=== PATIENT | female | born 1960 | race Caucasian/White ===

== ENCOUNTER 2017-09-23 00:16 | Inpatient (IN) | payer OTHER ==
[2017-09-23] MEDS ORDERED: SODIUM CHLORIDE 0.9% 1,000 ML IV STA ×2 (00:48→03:14)
[2017-09-23] MEDS ORDERED: ONDANSETRON 4 MG/2 ML VIAL IVP STA (00:48)
[2017-09-23 01:05] LABS: Basophils % (A) 1 %; Eosinophils # (A) 0.1 k/uL (0-0.7); Eosinophils % (A) 1 %; HCT 37.4 % (34.0-46.0); HGB 12.9 gm/dL (11.4-16.0); Lymphocytes # (A) 0.6 k/uL (1.0-4.8); Lymphocytes % (A) 14 %; MCH 32.5 pg (25.0-35.0); MCHC 34.5 g/dL (31.0-37.0); Mean Platelet Volume 7.9; Monocytes # (A) 0.1 k/uL (0-1.0); Monocytes % (A) 2 %; Neutrophils # (A) 3.6 k/uL (1.3-7.7); Neutrophils % (A) 81 %; RBC 3.98 m/uL (3.80-5.40); RDW 12.7 % (11.5-15.5); WBC 4.4 k/uL (3.8-10.6)
[2017-09-23 01:09] LABS: INR 1.6 (<1.2); Partial Thromboplastin Time 26.9 sec (22.0-30.0); Prothrombin Time 14.8 sec (9.0-12.0)
[2017-09-23] MEDS ORDERED: PANTOPRAZOLE 40 MG/10 ML VIAL IVP STA ×2 (01:09→02:14)
[2017-09-23] MEDS ORDERED: OCTREOTIDE 100 MCG/ML INJ IVP STA (01:09)
[2017-09-23 01:12] LABS: ALT 42 U/L (9-52); AST 112 U/L (14-36); Albumin 3.7 g/dL (3.5-5.0); Alkaline Phosphatase 139 U/L (38-126); Amylase 94 U/L (30-110); Anion Gap 19 mmol/L; Blood Urea Nitrogen 14 mg/dL (7-17); Calcium 9.5 mg/dL (8.4-10.2); Carbon Dioxide 23 mmol/L (22-30); Chloride 103 mmol/L (98-107); Glucose 143 mg/dL (74-99); Lipase 141 U/L (23-300); Potassium 4.1 mmol/L (3.5-5.1); Sodium 145 mmol/L (137-145); Total Bilirubin 3.6 mg/dL (0.2-1.3); Total Protein 8.2 g/dL (6.3-8.2)
--- NOTE | 2017-09-23 01:14 | ED ---
General Adult HPI - General Chief complaint: GI Bleed Stated complaint: vomiting Time Seen by Provider: 09/23/17 01:03 Source: patient, RN notes reviewed Mode of arrival: EMS Limitations: no limitations - History of Present Illness Initial comments: Patient is a pleasant 57-year-old female presenting to the emergency department with hematemesis. Patient has no history of similar symptoms previously. Patient does have a known history of alcoholic cirrhosis. Patient did recently start drinking again. Patient had an episode this afternoon of questionable hematemesis. Patient had an episode prior to arrival with definite blood and clots. Patient did have 2 episodes of hematemesis in the emergency department. Patient feels somewhat weak and shaky at this point otherwise has no significant complaints. No nausea at this time. No abdominal pain. No dyspnea. - Related Data Allergies Allergy/AdvReac Type Severity Reaction Status Date / Time Penicillins Allergy Unknown Verified 09/23/17 00:58 Childhood Review of Systems ROS Statement: Those systems with pertinent positive or pertinent negative responses have been documented in the HPI. ROS Other: All systems not noted in ROS Statement are negative. Constitutional: Denies: fever Eyes: Denies: eye pain ENT: Denies: ear pain Respiratory: Denies: cough Cardiovascular: Denies: chest pain Endocrine: Denies: polydipsia Gastrointestinal: Reports: vomiting, hematemesis. Denies: abdominal pain Genitourinary: Denies: dysuria Musculoskeletal: Denies: back pain Skin: Denies: rash Neurological: Denies: weakness Past Medical History Additional Past Medical History / Comment(s): cirrohsis of the liver History of Any Multi-Drug Resistant Organisms: None Reported Past Psychological History: No Psychological Hx Reported Smoking Status: Smoker, current status unknown Past Alcohol Use History: Daily Past Drug Use History: None Reported General Exam Limitations: no limitations General appearance: alert, in no apparent distress Head exam: Present: atraumatic Eye exam: Present: normal appearance, PERRL ENT exam: Present: normal oropharynx Neck exam: Present: normal inspection Respiratory exam: Present: normal lung sounds bilaterally Cardiovascular Exam: Present: regular rate, normal rhythm GI/Abdominal exam: Present: soft. Absent: distended, tenderness Extremities exam: Present: normal inspection Neurological exam: Present: alert Psychiatric exam: Present: normal affect, normal mood Skin exam: Present: normal color Course Vital Signs 09/23/17 09/23/17 09/23/17 00:29 00:43 01:42 Temperature 98.3 F Pulse Rate 106 H 99 99 Respiratory 18 18 18 Rate Blood Pressure 145/93 125/76 140/80 O2 Sat by Pulse 95 98 Oximetry Medical Decision Making - Medical Decision Making Patient reevaluated and resting comfortably in bed. Patient was updated on results and plan. Case was discussed in detail with Dr. Peter from [facility] who will admit for hospital call. Case was also discussed in detail with Dr. Calix, who will consult for critical care. Case was also discussed in detail with GI, Dr. Pinto who will also consult. She does request octreotide that has already been started. - Lab Data Result diagrams: 09/23/17 00:40 09/23/17 00:40 Lab Results 09/23/17 09/23/17 09/23/17 Range/Units 00:40 00:40 00:40 WBC (3.8-10.6) k/uL RBC (3.80-5.40) m/uL Hgb (11.4-16.0) gm/dL Hct (34.0-46.0) % MCV (80.0-100.0) fL MCH (25.0-35.0) pg MCHC (31.0-37.0) g/dL RDW (11.5-15.5) % Plt Count (150-450) k/uL Neutrophils % % Lymphocytes % % Monocytes % % Eosinophils % % Basophils % % Neutrophils # (1.3-7.7) k/uL Lymphocytes # (1.0-4.8) k/uL Monocytes # (0-1.0) k/uL Eosinophils # (0-0.7) k/uL Basophils # (0-0.2) k/uL Manual Slide Review PT (9.0-12.0) sec INR (<1.2) APTT (22.0-30.0) sec Sodium 145 (137-145) mmol/L Potassium 4.1 (3.5-5.1) mmol/L Chloride 103 (98-107) mmol/L Carbon Dioxide 23 (22-30) mmol/L Anion Gap 19 mmol/L BUN 14 (7-17) mg/dL Creatinine 0.40 L (0.52-1.04) mg/dL Est GFR (CKD-EPI)AfAm >90 (>60 ml/min/1.73 sqM) Est GFR (CKD-EPI)NonAf >90 (>60 ml/min/1.73 sqM) Glucose 143 H (74-99) mg/dL Plasma Lactic Acid Antoine 3.5 H* (0.7-2.0) mmol/L Calcium 9.5 (8.4-10.2) mg/dL Total Bilirubin 3.6 H (0.2-1.3) mg/dL AST 112 H (14-36) U/L ALT 42 (9-52) U/L Alkaline Phosphatase 139 H (38-126) U/L Total Creatine Kinase 91 (30-135) U/L CK-MB (CK-2) 0.6 (0.0-2.4) ng/mL CK-MB (CK-2) Rel Index 0.7 Troponin I <0.012 (0.000-0.034) ng/mL Total Protein 8.2 (6.3-8.2) g/dL Albumin 3.7 (3.5-5.0) g/dL Amylase 94 (30-110) U/L Lipase 141 (23-300) U/L 09/23/17 09/23/17 Range/Units 00:40 00:40 WBC 4.4 (3.8-10.6) k/uL RBC 3.98 (3.80-5.40) m/uL Hgb 12.9 (11.4-16.0) gm/dL Hct 37.4 (34.0-46.0) % MCV 94.0 (80.0-100.0) fL MCH 32.5 (25.0-35.0) pg MCHC 34.5 (31.0-37.0) g/dL RDW 12.7 (11.5-15.5) % Plt Count 91 L (150-450) k/uL Neutrophils % 81 % Lymphocytes % 14 % Monocytes % 2 % Eosinophils % 1 % Basophils % 1 % Neutrophils # 3.6 (1.3-7.7) k/uL Lymphocytes # 0.6 L (1.0-4.8) k/uL Monocytes # 0.1 (0-1.0) k/uL Eosinophils # 0.1 (0-0.7) k/uL Basophils # 0.0 (0-0.2) k/uL Manual Slide Review Performed PT 14.8 H (9.0-12.0) sec INR 1.6 H (<1.2) APTT 26.9 (22.0-30.0) sec Sodium (137-145) mmol/L Potassium (3.5-5.1) mmol/L Chloride (98-107) mmol/L Carbon Dioxide (22-30) mmol/L Anion Gap mmol/L BUN (7-17) mg/dL Creatinine (0.52-1.04) mg/dL Est GFR (CKD-EPI)AfAm (>60 ml/min/1.73 sqM) Est GFR (CKD-EPI)NonAf (>60 ml/min/1.73 sqM) Glucose (74-99) mg/dL Plasma Lactic Acid Antoine (0.7-2.0) mmol/L Calcium (8.4-10.2) mg/dL Total Bilirubin (0.2-1.3) mg/dL AST (14-36) U/L ALT (9-52) U/L Alkaline Phosphatase (38-126) U/L Total Creatine Kinase (30-135) U/L CK-MB (CK-2) (0.0-2.4) ng/mL CK-MB (CK-2) Rel Index Troponin I (0.000-0.034) ng/mL Total Protein (6.3-8.2) g/dL Albumin (3.5-5.0) g/dL Amylase (30-110) U/L Lipase (23-300) U/L Critical Care Time Critical Care Time: Yes Total Critical Care Time: 36 Disposition Clinical Impression: Gastrointestinal hemorrhage Disposition: ADMITTED IP TO THIS [facility] Condition: Serious Referrals: Nonstaff,Physician [Primary Care Provider] - 1-2 days Decision Time: 02:13
[2017-09-23 01:20] LABS: Creatine Kinase 91 U/L (30-135)
[2017-09-23 01:25] LABS: Platelet Count 91 k/uL (150-450)
[2017-09-23 01:33] LABS: Creatine Kinase MB 0.6 ng/mL (0.0-2.4); Troponin I <0.012 ng/mL (0.000-0.034)
[2017-09-23] MEDS: OCTREOTIDE 200 MCG in SODIUM CHLORIDE 0.9% 100 ML IV SCH ×6 (01:40→21:17)
[2017-09-23] MEDS ORDERED: NALOXONE 0.4 MG/ML 1 ML VIAL IV PRN (02:14)
[2017-09-23] MEDS: SODIUM CHLORIDE 0.9% 1,000 ML IV SCH ×3 (03:12→20:12)
--- NOTE | 2017-09-23 03:39 | P.HPIM ---
History of Present Illness H&P Date: 09/23/17 The Patient is a pleasant 57-year-old female with a past medical history of alcoholic liver cirrhosis that presenting to the emergency department with hematemesis. Patient has no history of similar symptoms previously. Patient does have a known . Patient did recently start drinking again today and had 3 drinks of hard liquor and 3 beers, apparently the patient started drinking again due to increase stressors from her divorce. Patient had an episode this afternoon of hematemesis. Patient had two episode prior to arrival with definite bright red blood and clots. Patient did have 4 episodes of hematemesis in the emergency department. Patient feels somewhat weak and shaky and lightheaded, with mild nausea and diaphoresis. She denies abdominal pain, diarrhea or constipation, or chest pain or shortness of air. In the ER she had admission labs with hemoglobin of 13,, INR 1.6 and a serum lactate of 3.5. She was given a liter normal saline bolus and started on maintenance fluids, 80 mg of Protonix IV push and octreotide 50mcg IV push Past Medical History Additional Past Medical History / Comment(s): cirrohsis of the liver History of Any Multi-Drug Resistant Organisms: None Reported Past Psychological History: No Psychological Hx Reported Smoking Status: Smoker, current status unknown Past Alcohol Use History: Daily Past Drug Use History: None Reported Medications and Allergies Allergies Allergy/AdvReac Type Severity Reaction Status Date / Time Penicillins Allergy Unknown Verified 09/23/17 00:58 Childhood Physical Exam Vitals: Vital Signs Temp Pulse Resp BP Pulse Ox 09/23/17 03:19 103 H 18 82/51 95 09/23/17 02:40 95 18 112/66 95 09/23/17 01:42 99 18 140/80 09/23/17 00:43 99 18 125/76 98 09/23/17 00:29 98.3 F 106 H 18 145/93 95 Intake and Output 09/22/17 09/22/17 09/23/17 14:59 22:59 06:59 Other: Weight 68.039 kg Constitutional: Mild distress diaphoretic, conversant, pleasant Eyes: Anicteric sclerae, moist conjunctiva, no lid-lag, PERRLA ENMT: NC/AT,Oropharynx clear, no erythema, exudates Neck:Supple, FROM, no masses, or JVD, No carotid bruits; No thyromegaly Lungs: Clear to auscultation, Clear to percussion, Normal respiratory effort, no accessory muscle use Cardiovascular: Regular rhythm tachycardic, No murmurs, gallops, or rubs no peripheral edema Abdominal: Soft Nontender, nom distended, no guarding, no rebound or rigidity, Normoactive bowel sounds No hepatomegaly, No splenomegaly, No palpable mass No abdominal wall hernia noted Skin: Normal temperature, tone, texture, turgor, No induration No subcutaneous nodules, No rash, lesions, No ulcers Extremities:No digital cyanosis No clubbing, Pedal pulses intact and symmetrical Radial pulses intact and symmetrical Normal gait and station, No calf tenderness Psychiatric: Alert and oriented to person, place and time, Appropriate affect Intact judgement Neuro: Muscles Strength 5/5 in all 4 extremities, Sensation to light touch grossly present throughout, Cranial nerves II-XII grossly intact. No focal sensory deficits Results CBC & Chem 7: 09/23/17 00:40 09/23/17 00:40 Labs: Abnormal Lab Results - Last 24 Hours (Table) 09/23/17 09/23/17 09/23/17 Range/Units 00:40 00:40 00:40 Plt Count 91 L (150-450) k/uL Lymphocytes # 0.6 L (1.0-4.8) k/uL PT (9.0-12.0) sec INR (<1.2) Creatinine 0.40 L (0.52-1.04) mg/dL Glucose 143 H (74-99) mg/dL Plasma Lactic Acid Antoine 3.5 H* (0.7-2.0) mmol/L Total Bilirubin 3.6 H (0.2-1.3) mg/dL AST 112 H (14-36) U/L Alkaline Phosphatase 139 H (38-126) U/L 09/23/17 Range/Units 00:40 Plt Count (150-450) k/uL Lymphocytes # (1.0-4.8) k/uL PT 14.8 H (9.0-12.0) sec INR 1.6 H (<1.2) Creatinine (0.52-1.04) mg/dL Glucose (74-99) mg/dL Plasma Lactic Acid Antoine (0.7-2.0) mmol/L Total Bilirubin (0.2-1.3) mg/dL AST (14-36) U/L Alkaline Phosphatase (38-126) U/L Assessment and Plan (1) Gastrointestinal hemorrhage Current Visit: Yes Status: Acute Code(s): K92.2 - GASTROINTESTINAL HEMORRHAGE, UNSPECIFIED SNOMED Code(s): 21928742 (2) Hypotension due to blood loss Current Visit: Yes Status: Acute Code(s): I95.89 - OTHER HYPOTENSION SNOMED Code(s): 81493422 (3) Alcoholic cirrhosis of liver Current Visit: Yes Status: Acute Code(s): K70.30 - ALCOHOLIC CIRRHOSIS OF LIVER WITHOUT ASCITES SNOMED Code(s): 682512219 (4) Chronic alcohol dependence, continuous Current Visit: Yes Status: Acute Code(s): F10.20 - ALCOHOL DEPENDENCE, UNCOMPLICATED SNOMED Code(s): 237840283 Plan: The patient is admitted with anticipated stay of greater than 2 midnights with upper GI bleed and concern for impending anemia after presenting with several episodes of hematemesis michael red blood with the products of 1 episode of hematemesis witnessed by me personally. The patient is also hypotensive and tachycardic with elevated serum lactate level secondary to her upper GI bleed. We'll bolus the patient another 2 L of normal saline, continue her octreotide drip, continue IV Protonix. Patient will be observed closely in the ICU with Dr. Ricketts in consultation, GI Dr. Moran was also consulted for further recommendations. There is no other the patient has a elevated INR of 1.6 which is likely due to autocoagulopathy due to her underlying liver cirrhosis. We'll continue to follow her CBC closely , repeat a lactate level, check serum alcohol initiate [facility] symptom based alcohol withdrawal protocol and continue to monitor her clinical course. DVT prophylaxis with pharmacotherapy contraindicated at this time due to upper GI bleeding.
[2017-09-23] MEDS ORDERED: THIAMINE 100 MG/ML 2 ML VIAL IM STA (03:48)
[2017-09-23] MEDS ORDERED: LORazepam 2 MG/ML INJ IV PRN ×3 (03:48)
--- NOTE | 2017-09-23 04:18 | CT ---
EXAMINATION TYPE: CT abdomen pelvis wo con DATE OF EXAM: 09/23/2017 COMPARISON: NONE HISTORY: GI Bleed CT DLP: 394.30 mGycm Automated exposure control for dose reduction was used. TECHNIQUE: Helical acquisition of images was performed from the lung bases through the pelvis. FINDINGS: Lung bases are clear. There is no pleural effusion. There is a small hiatal hernia. There is patchy decreased attenuation throughout the liver. Spleen is borderline enlarged. There is n o pancreatic mass. Gallbladder is not seen. There is a large umbilical hernia that contains omental f at and varicose veins. There is no adrenal mass. Kidneys have normal size. There is no hydronephrosis. There is no retroperi toneal adenopathy. There is no evidence of a bowel obstruction. I see no intestinal wall thickening. There are no dilate d loops. I see no bony destructive process. Appendix is not seen. There is no sign of appendicitis. IMPRESSION: UMBILICAL VARICES. EXTENSIVE HYPODENSITY IN THE LIVER. IS NOT CLEAR IF THIS IS DUE TO AN INFILTRATIVE PROCESS OR CIRRHOSIS AND FATTY INFILTRATION. THE POSSIBILITY OF NEOPLASM IS NOT EXCLUDED. VARICES AR E CONSISTENT WITH SIGNIFICANT PORTAL VENOUS HYPERTENSION. LARGE UMBILICAL HERNIA CONTAINS OMENTAL FAT AND VARICES. NO BOWEL OBSTRUCTION.
[2017-09-23 04:30] LABS: Basophils % (A) 0 %; Eosinophils % (A) 0 %; HGB 10.1 gm/dL (11.4-16.0); Lymphocytes # (A) 0.4 k/uL (1.0-4.8); Lymphocytes % (A) 6 %; MCH 32.6 pg (25.0-35.0); MCHC 33.8 g/dL (31.0-37.0); MCV 96.5 fL (80.0-100.0); Mean Platelet Volume 8.8; Monocytes # (A) 0.4 k/uL (0-1.0); Monocytes % (A) 6 %; Neutrophils % (A) 87 %; Platelet Count 79 k/uL (150-450); RBC 3.11 m/uL (3.80-5.40); RDW 12.6 % (11.5-15.5); WBC 6.9 k/uL (3.8-10.6)
[2017-09-23 04:41] LABS: Glucose,Whole Blood 127 mg/dL (75-99)
[2017-09-23 04:43] LABS: ALT 41 U/L (9-52); AST 80 U/L (14-36); Albumin 2.7 g/dL (3.5-5.0); Alkaline Phosphatase 100 U/L (38-126); Anion Gap 15 mmol/L; Blood Urea Nitrogen 14 mg/dL (7-17); Carbon Dioxide 20 mmol/L (22-30); Chloride 109 mmol/L (98-107); Glucose 105 mg/dL (74-99); Potassium 3.9 mmol/L (3.5-5.1); Sodium 144 mmol/L (137-145); Total Bilirubin 3.3 mg/dL (0.2-1.3); Total Protein 6.3 g/dL (6.3-8.2)
[2017-09-23] MEDS: ONDANSETRON 4 MG/2 ML VIAL IVP PRN ×2 (05:03→12:54)
[2017-09-23 08:49] LABS: Basophils % (A) 0 %; Eosinophils % (A) 0 %; HGB 9.3 gm/dL (11.4-16.0); Lymphocytes # (A) 0.3 k/uL (1.0-4.8); Lymphocytes % (A) 6 %; MCH 32.6 pg (25.0-35.0); MCHC 34.2 g/dL (31.0-37.0); MCV 95.3 fL (80.0-100.0); Mean Platelet Volume 9.6; Monocytes # (A) 0.2 k/uL (0-1.0); Monocytes % (A) 4 %; Neutrophils # (A) 4.8 k/uL (1.3-7.7); Neutrophils % (A) 90 %; RBC 2.84 m/uL (3.80-5.40); RDW 12.7 % (11.5-15.5); WBC 5.4 k/uL (3.8-10.6)
[2017-09-23 08:53] LABS: Platelet Count 59 k/uL (150-450)
[2017-09-23 09:10] LABS: Anion Gap 13 mmol/L; Blood Urea Nitrogen 14 mg/dL (7-17); Calcium 7.8 mg/dL (8.4-10.2); Carbon Dioxide 22 mmol/L (22-30); Chloride 109 mmol/L (98-107); Glucose 155 mg/dL (74-99); Magnesium 1.2 mg/dL (1.6-2.3); Phosphorus 3.8 mg/dL (2.5-4.5); Potassium 4.5 mmol/L (3.5-5.1); Sodium 144 mmol/L (137-145)
--- NOTE | 2017-09-23 09:34 | P.CNPUL ---
History of Present Illness Consult date: 09/23/17 Chief complaint: GI bleed, alcoholic liver disease, cirrhosis History of present illness: Consult dated 09/23/2017 57-year-old female presenting to the emergency department with hematemesis. She has a known history of alcoholic liver disease and liver cirrhosis from chronic alcohol abuse. She apparently stopped drinking for a while but started drinking again. She states that she drinks 10 beers a day. She taper typically drinks a VATS. The patient denies any abdominal pain or abdominal discomfort. Denies any difficulty breathing coughing wheezing or shortness of breath. She apparently had a couple of episodes of hematemesis in the emergency department. She does feel a little weak and shaky. Seen by the hospitalist. She's not receiving any supplemental oxygen at this time. She does have an IV of saline at 120 and our. She's also on octreotide at 50 g per hour. Has not received any PRBCs. Lactic acid was initially 3.5 and then came down to 3.0. Hemoglobin is 10.1. Hemodynamically, the patient is stable. The patient states that she does not have any other major medical problems. Denies any hypertension diabetes or hyperlipidemia. Is a current every day smoker. As I mention does drink 10 beers a day starting at about 8:00 in the morning and ending at about 2:00 in the morning. Review of Systems Constitutional negative, neurologic negative, HEENT negative, cardiovascular negative, pulmonary negative, GI hematemesis, negative, rheumatologic negative, neurologic negative, dermatologic negative. Past Medical History Additional Past Medical History / Comment(s): cirrohsis of the liver History of Any Multi-Drug Resistant Organisms: None Reported Past Psychological History: No Psychological Hx Reported Smoking Status: Smoker, current status unknown Past Alcohol Use History: Daily Past Drug Use History: None Reported Medications and Allergies Home Medications Medication Instructions Recorded Confirmed Type Furosemide [Lasix] 40 mg PO DAILY 09/23/17 09/23/17 History Allergies Allergy/AdvReac Type Severity Reaction Status Date / Time Penicillins Allergy Unknown Verified 09/23/17 08:16 Childhood Physical Exam Osteopathic Statement: *. No significant issues noted on an osteopathic structural exam other than those noted in the History and Physical/Consult. Vitals: Vital Signs Temp Pulse Resp BP Pulse Ox 09/23/17 08:00 99.7 F H 107 H 32 H 104/52 94 L 09/23/17 07:00 103 H 16 101/49 94 L 09/23/17 06:00 89 16 104/69 94 L 09/23/17 05:00 99 16 100/64 95 09/23/17 04:50 17 09/23/17 04:40 97.4 F L 100 16 100/64 94 L 09/23/17 04:23 98.3 F 97 18 98/62 95 09/23/17 03:45 109 H 18 119/56 98 09/23/17 03:19 103 H 18 82/51 95 09/23/17 02:40 95 18 112/66 95 09/23/17 01:42 99 18 140/80 09/23/17 00:43 99 18 125/76 98 09/23/17 00:29 98.3 F 106 H 18 145/93 95 Intake and Output 09/22/17 09/23/17 09/23/17 22:59 06:59 14:59 Intake Total 341 299.758 Output Total 240 Balance 101 299.758 Intake: IV 240 240 Sodium Chloride 0.9% 1, 240 240 000 ml @ 120 mls/hr IV . Q8H20M HAROLDO Rx#:[id number] Intake, IV Titration 101 59.758 Amount Octreotide 200 mcg In 101 59.758 Sodium Chloride 0.9% 100 ml @ 50 MCG/HR 25.25 mls/ hr IV .Q4H HAROLDO Rx#: [id number] Output: Emesis 240 Other: # Voids 1 Weight 68.039 kg No acute distress, oriented 3. The patient is a bit shaky. HEENT examination is grossly unremarkable. Mucous membranes are moist. No oral lesions. Neck supple. Full range of motion. No adenopathy thyromegaly or neck vein distention. Cardiovascular examination reveals regular rhythm rate. S1-S2 normal. No S3 or S4. No discernible murmur noted. Lungs reveal clear breath sounds. Her sounds are equal bilaterally. No adventitious lung sounds including wheezes rhonchi or crackles. Abdomen soft bowel sounds are heard. No masses or tenderness. Extremities are intact. No cyanosis clubbing or edema. Skin reveals spider angiomata, a stigmata of alcoholic liver disease Neurologic examination is brief but nonfocal. Results - Laboratory Findings CBC and BMP: 09/23/17 08:22 04/11/18 03:50 PT/INR, D-dimer PT 14.8 sec (9.0-12.0) H 09/23/17 00:40 INR 1.6 (<1.2) H 09/23/17 00:40 Abnormal lab findings: Abnormal Labs 09/23/17 09/23/17 09/23/17 00:40 00:40 00:40 RBC Hgb Hct Plt Count 91 L Lymphocytes # 0.6 L PT INR Chloride Carbon Dioxide Creatinine 0.40 L Glucose 143 H POC Glucose (mg/dL) Plasma Lactic Acid Antoine 3.5 H* Calcium Total Bilirubin 3.6 H AST 112 H Alkaline Phosphatase 139 H Albumin 09/23/17 09/23/17 09/23/17 00:40 03:50 03:50 RBC 3.11 L Hgb 10.1 L Hct 30.0 L Plt Count 79 L Lymphocytes # 0.4 L PT 14.8 H INR 1.6 H Chloride 109 H Carbon Dioxide 20 L Creatinine 0.50 L Glucose 105 H POC Glucose (mg/dL) Plasma Lactic Acid Antoine Calcium 8.0 L Total Bilirubin 3.3 H AST 80 H Alkaline Phosphatase Albumin 2.7 L 09/23/17 09/23/17 09/23/17 03:50 04:39 08:22 RBC 2.84 L Hgb 9.3 L Hct 27.0 L Plt Count 59 L Lymphocytes # 0.3 L PT INR Chloride Carbon Dioxide Creatinine Glucose POC Glucose (mg/dL) 127 H Plasma Lactic Acid Antoine 3.0 H* Calcium Total Bilirubin AST Alkaline Phosphatase Albumin 09/23/17 08:22 RBC Hgb Hct Plt Count Lymphocytes # PT INR Chloride Carbon Dioxide Creatinine Glucose POC Glucose (mg/dL) Plasma Lactic Acid Antoine 3.3 H* Calcium Total Bilirubin AST Alkaline Phosphatase Albumin - Diagnostic Findings Chest x-ray: image reviewed (Chest x-ray labs and medications are all reviewed.) Assessment and Plan Assessment: Assessment Alcoholic liver disease with alcoholic cirrhosis Upper GI bleed, likely secondary to esophageal varices or gastric/duodenal ulcer. History of chronic alcohol abuse at 10 beers per day Chronic tobacco use Noncompliance with general medical care Plan: Plan dated 09/23/2017 The patient will probably have a scope today. Was suspected EGD to rule out esophageal varices. The patient currently is on octreotide at 50 g per hour. The patient's also receiving saline IV 120 mL an hour. Not requiring any supplemental oxygen. Hemoglobin stable at 10.1. Labs and x-rays are reviewed. Prognosis is guarded. He concerned about full-blown alcohol withdrawal syndrome, i.e. delirium tremens. Additional recommendations and suggestions are forthcoming. For the time being, she will stay here in the ICU. I did speak to the hospitalist about her. Also case work aide is involved in terms of her issue with lack of insurance. Time with Patient: Greater than 30
[2017-09-23] MEDS: PANTOPRAZOLE 40 MG/10 ML VIAL IV SCH ×2 (09:40→20:07)
--- NOTE | 2017-09-23 10:14 | P.CONS ---
History of Present Illness - Reason for Consult Consult date: 09/23/17 GI bleed hematemesis Requesting physician: Reynold Peter - History of Present Illness 57-year-old female diagnosed with alcohol liver cirrhosis several years ago in [facility] presents with acute hematemesis 24 hours without fever chills melena or hematochezia. Patient has been drinking multiple beers on a daily basis experiencing some social stresses in her life. Reports mid epigastric discomfort. She vomited dark red emesis multiple times yesterday and early through the night but none this morning. She is presently receiving intravenous Protonix and Sandostatin. EGD colonoscopy outside facility 3-4 years ago to her memory; EGD normal no mentioning of varices or peptic ulcer disease; colonoscopy 1 polyp removed. Admission hemoglobin 12.9 presently 9.3. Platelet 59,000. BUN 14. Creatinine 0.4. INR 1.6. Total bilirubin 3.6. AST 112. ALT 42. Alkaline phosphatase 139. Lipase 141. Serum alcohol <10. Lactic acid 3.5 presently 3.3. Sodium 144. Potassium 4.5. CT abdomen and pelvis without contrast umbilical varices. Extensive hypodensity in the liver not clear if it's due to an infiltrative process of cirrhosis or fatty infiltration. Neoplasm cannot be excluded. Varices are consistent with significant portal venous hypertension. Large umbilical hernia omental fat and varices no bowel obstruction. Review of Systems Constitutional: Denies fever, chills, sweats, weight gain, or loss. HEENT: Negative for migraines, blurred vision or loss, earaches, drainage, tinnitus, oral mucosal lesions, dysphagia, or odynophagia. CARDIAC: Negative for chest pain, arrhythmias, or palpitation. RESPIRATORY: Negative for shortness of breath, hemoptysis, cough, or sputum production. GI: See HPI for pertinent findings. : Negative for hematuria, urgency, frequency, polyuria, or dysuria. GYNc: Denies possibility of . Negative vaginal discharge. MUSCULOSKELETAL: Negative for muscle aches, swelling, arthritis, and arthralgias. NEUROLOGIC: Negative for stroke or TIA. ENDOCRINE: Negative for thyroid problems. SKIN: Negative for rash or itching. PSYCHIATRIC: Negative history for depression and anxiety Past Medical History Additional Past Medical History / Comment(s): cirrohsis of the liver History of Any Multi-Drug Resistant Organisms: None Reported Past Psychological History: No Psychological Hx Reported Smoking Status: Smoker, current status unknown Past Alcohol Use History: Daily Past Drug Use History: None Reported Medications and Allergies Home Medications Medication Instructions Recorded Confirmed Type Furosemide [Lasix] 40 mg PO DAILY 09/23/17 09/23/17 History Allergies Allergy/AdvReac Type Severity Reaction Status Date / Time Penicillins Allergy Unknown Verified 09/23/17 08:16 Childhood Physical Exam Vitals: Vital Signs Temp Pulse Resp BP Pulse Ox 09/23/17 08:00 99.7 F H 107 H 32 H 104/52 94 L 09/23/17 07:00 103 H 16 101/49 94 L 09/23/17 06:00 89 16 104/69 94 L 09/23/17 05:00 99 16 100/64 95 09/23/17 04:50 17 09/23/17 04:40 97.4 F L 100 16 100/64 94 L 09/23/17 04:23 98.3 F 97 18 98/62 95 09/23/17 03:45 109 H 18 119/56 98 09/23/17 03:19 103 H 18 82/51 95 09/23/17 02:40 95 18 112/66 95 09/23/17 01:42 99 18 140/80 09/23/17 00:43 99 18 125/76 98 09/23/17 00:29 98.3 F 106 H 18 145/93 95 Intake and Output 09/22/17 09/23/17 09/23/17 22:59 06:59 14:59 Intake Total 341 299.758 Output Total 240 Balance 101 299.758 Intake: IV 240 240 Sodium Chloride 0.9% 1, 240 240 000 ml @ 120 mls/hr IV . Q8H20M [facility] Rx#:[id number] Intake, IV Titration 101 59.758 Amount Octreotide 200 mcg In 101 59.758 Sodium Chloride 0.9% 100 ml @ 50 MCG/HR 25.25 mls/ hr IV .Q4H [facility] Rx#: [id number] Output: Emesis 240 Other: # Voids 1 Weight 68.039 kg General appearance: The patient is alert, oriented, in no acute distress. HET: Head is normocephalic and atraumatic. Pupils are equal and reactive. Oropharynx is clear without lesions. Neck: Supple without lymphadenopathy. Trachea midline. Heart: S1 S2. Regular rate and rhythm. Lungs: No crackles or wheezes are heard. Abdomen: Soft, mild midepigastric tenderness reducible umbilical hernia, nondistended with bowel sounds. No peritoneal signs. No palpable organomegaly or masses. Extremities: Normal skin color and turgor. No cyanosis, rash, ulceration, clubbing, or edema. Radial and pedal pulses are 2/4 bilaterally. Neurological: No focal deficits. Strength and sensation are grossly intact. Results CBC & Chem 7: 09/23/17 08:22 09/23/17 08:22 Labs: Abnormal Lab Results - Last 24 Hours (Table) 09/23/17 09/23/17 09/23/17 Range/Units 00:40 00:40 00:40 RBC (3.80-5.40) m/uL Hgb (11.4-16.0) gm/dL Hct (34.0-46.0) % Plt Count 91 L (150-450) k/uL Lymphocytes # 0.6 L (1.0-4.8) k/uL PT (9.0-12.0) sec INR (<1.2) Chloride (98-107) mmol/L Carbon Dioxide (22-30) mmol/L Creatinine 0.40 L (0.52-1.04) mg/dL Glucose 143 H (74-99) mg/dL POC Glucose (mg/dL) (75-99) mg/dL Plasma Lactic Acid Antoine 3.5 H* (0.7-2.0) mmol/L Calcium (8.4-10.2) mg/dL Magnesium (1.6-2.3) mg/dL Total Bilirubin 3.6 H (0.2-1.3) mg/dL AST 112 H (14-36) U/L Alkaline Phosphatase 139 H (38-126) U/L Albumin (3.5-5.0) g/dL 09/23/17 09/23/17 09/23/17 Range/Units 00:40 03:50 03:50 RBC 3.11 L (3.80-5.40) m/uL Hgb 10.1 L (11.4-16.0) gm/dL Hct 30.0 L (34.0-46.0) % Plt Count 79 L (150-450) k/uL Lymphocytes # 0.4 L (1.0-4.8) k/uL PT 14.8 H (9.0-12.0) sec INR 1.6 H (<1.2) Chloride 109 H (98-107) mmol/L Carbon Dioxide 20 L (22-30) mmol/L Creatinine 0.50 L (0.52-1.04) mg/dL Glucose 105 H (74-99) mg/dL POC Glucose (mg/dL) (75-99) mg/dL Plasma Lactic Acid Antoine (0.7-2.0) mmol/L Calcium 8.0 L (8.4-10.2) mg/dL Magnesium (1.6-2.3) mg/dL Total Bilirubin 3.3 H (0.2-1.3) mg/dL AST 80 H (14-36) U/L Alkaline Phosphatase (38-126) U/L Albumin 2.7 L (3.5-5.0) g/dL 09/23/17 09/23/17 09/23/17 Range/Units 03:50 04:39 08:22 RBC 2.84 L (3.80-5.40) m/uL Hgb 9.3 L (11.4-16.0) gm/dL Hct 27.0 L (34.0-46.0) % Plt Count 59 L (150-450) k/uL Lymphocytes # 0.3 L (1.0-4.8) k/uL PT (9.0-12.0) sec INR (<1.2) Chloride (98-107) mmol/L Carbon Dioxide (22-30) mmol/L Creatinine (0.52-1.04) mg/dL Glucose (74-99) mg/dL POC Glucose (mg/dL) 127 H (75-99) mg/dL Plasma Lactic Acid Antoine 3.0 H* (0.7-2.0) mmol/L Calcium (8.4-10.2) mg/dL Magnesium (1.6-2.3) mg/dL Total Bilirubin (0.2-1.3) mg/dL AST (14-36) U/L Alkaline Phosphatase (38-126) U/L Albumin (3.5-5.0) g/dL 09/23/17 09/23/17 Range/Units 08:22 08:22 RBC (3.80-5.40) m/uL Hgb (11.4-16.0) gm/dL Hct (34.0-46.0) % Plt Count (150-450) k/uL Lymphocytes # (1.0-4.8) k/uL PT (9.0-12.0) sec INR (<1.2) Chloride 109 H (98-107) mmol/L Carbon Dioxide (22-30) mmol/L Creatinine 0.45 L (0.52-1.04) mg/dL Glucose 155 H (74-99) mg/dL POC Glucose (mg/dL) (75-99) mg/dL Plasma Lactic Acid Antoine 3.3 H* (0.7-2.0) mmol/L Calcium 7.8 L (8.4-10.2) mg/dL Magnesium 1.2 L (1.6-2.3) mg/dL Total Bilirubin (0.2-1.3) mg/dL AST (14-36) U/L Alkaline Phosphatase (38-126) U/L Albumin (3.5-5.0) g/dL CT scan - abdomen: report reviewed (Dr. Moran) Assessment and Plan (1) Acute upper GI bleed Narrative/Plan: Possible esophageal gastric variceal bleed possible peptic ulcer disease. Current Visit: Yes Status: Acute Code(s): K92.2 - GASTROINTESTINAL HEMORRHAGE, UNSPECIFIED SNOMED Code(s): 74666113 (2) Hematemesis Current Visit: Yes Status: Acute Code(s): K92.0 - HEMATEMESIS SNOMED Code( s): 1054998 (3) Alcoholic cirrhosis of liver Current Visit: Yes Status: Acute Code(s): K70.30 - ALCOHOLIC CIRRHOSIS OF LIVER WITHOUT ASCITES SNOMED Code(s): 750672797 (4) Chronic alcohol dependence, continuous Current Visit: Yes Status: Acute Code(s): F10.20 - ALCOHOL DEPENDENCE, UNCOMPLICATED SNOMED Code(s): 338230854 (5) Acute blood loss anemia Current Visit: Yes Status: Acute Code(s): D62 - ACUTE POSTHEMORRHAGIC ANEMIA SNOMED Code(s): 419167042 (6) Thrombocytopenia Current Visit: Yes Status: Acute Code(s): D69.6 - THROMBOCYTOPENIA, UNSPECIFIED SNOMED Code(s): 847567690 (7) Coagulopathy Current Visit: Yes Status: Acute Code(s): D68.9 - COAGULATION DEFECT, UNSPECIFIED SNOMED Code(s): 65960804 (8) Varices of other sites Narrative/Plan: Umbilical varices per CT Current Visit: Yes Status: Acute Code(s): I86.8 - VARICOSE VEINS OF OTHER SPECIFIED SITES SNOMED Code(s): 826323538 Plan: 1. EGD evaluation. 2. Continue with intravenous Sandostatin and Protonix. 3. CBC every 6 hours. 4. Alcohol abstinence strongly advised. 5. Hepatitis screen. AFP marker. The workday financials consultant has discussed the risks, benefits and alternative therapies for the above-mentioned procedure and for both sedation/analgesia as well as necessary blood product administration, if indicated, as they pertain to this patient. The patient has indicated understanding and acceptance of the risks and procedures discussed. Thank you for this kind referral and the opportunity to participate in the care of your patient. This consultation was discussed with Dr. Moran. The impression and plan of care have been directed as dictated.
--- NOTE | 2017-09-23 11:24 | P.PN ---
Subjective Progress Note Date: 09/23/17 Principal diagnosis: Hematemesis Patient is a 57-year-old female with a known history of cirrhosis, alcohol abuse, and tobacco abuse who presented to the emergency department with hematemesis. On arrival she was found to be slightly tachycardic with a pulse of 106. Blood pressure was normal at 145/93. Initial laboratory analysis showed a normal hemoglobin. Platelets were slightly low at 91. INR elevated at 1.6. Her lactic acid was also a 3.5. AST and total bilirubin were mildly elevated. She continued to have some vomiting in the emergency department. She was placed on a Protonix IV push and on octreotide drip. Arrangements were made for her to be admitted to the ICU. Her hemoglobin then down trended to 10.1. Patient seen and examined at bedside. She denies any more vomiting since arriving to the ICU. She feels slightly nauseated. She denies any chest pain or shortness of breath. She states that she was first diagnosed with cirrhosis 7 years ago. She's been sober for 5 years but started drinking again approximately 2 years ago. Initially it was seldom, but for the last year she has been drinking 10 beers daily. She reports some tremor and feeling anxious. She is not fidgety. She is not diaphoretic at this time. She does have a history of alcohol withdrawal in the past when hospitalized. Her last drink was yesterday early afternoon. No history of seizure from alcohol withdrawal Objective - Vital Signs Vital signs: Vital Signs Temp 99.7 F H 09/23/17 08:00 Pulse 101 H 09/23/17 11:00 Resp 22 09/23/17 11:00 BP 109/54 09/23/17 11:00 Pulse Ox 93 L 09/23/17 11:00 Intake & Output 09/22/17 09/23/17 09/23/17 18:59 06:59 18:59 Intake Total 341 659.758 Output Total 240 Balance 101 659.758 Weight 68.039 kg Intake: IV 240 600 Sodium Chloride 0.9% 1, 240 600 000 ml @ 120 mls/hr IV . Q8H20M [facility] Rx#:[id number] Intake, IV Titration 101 59.758 Amount Octreotide 200 mcg In 101 59.758 Sodium Chloride 0.9% 100 ml @ 50 MCG/HR 25.25 mls/ hr IV .Q4H [facility] Rx#: [id number] Output: Emesis 240 Other: # Voids 1 - Exam General: non toxic, mild distress, appears at stated age Derm: warm, dry Head: atraumatic, normocephalic, symmetric Eyes: EOMI, no lid lag, anicteric sclera Mouth: no lip lesion, mucus membranes moist Cardiovascular: S1S2 reg, no murmur, positive posterior tibial pulse bilateral, Lungs: Decreased breath sounds bilateral bases, no rhonchi, no rales , no accessory muscle use Abdominal: soft, nontender to palpation, no guarding, no appreciable organomegaly Ext: no gross muscle atrophy, no edema, no contractures Neuro: CN II-XI grossly intact, no focal neuro deficits, + asterixis Psych: Alert, oriented, appropriate affect , appears anxious - Labs CBC & Chem 7: 09/23/17 08:22 09/23/17 08:22 Labs: Abnormal Lab Results - Last 24 Hours (Table) 09/23/17 09/23/17 09/23/17 Range/Units 00:40 00:40 00:40 RBC (3.80-5.40) m/uL Hgb (11.4-16.0) gm/dL Hct (34.0-46.0) % Plt Count 91 L (150-450) k/uL Lymphocytes # 0.6 L (1.0-4.8) k/uL PT (9.0-12.0) sec INR (<1.2) Chloride (98-107) mmol/L Carbon Dioxide (22-30) mmol/L Creatinine 0.40 L (0.52-1.04) mg/dL Glucose 143 H (74-99) mg/dL POC Glucose (mg/dL) (75-99) mg/dL Plasma Lactic Acid Antoine 3.5 H* (0.7-2.0) mmol/L Calcium (8.4-10.2) mg/dL Magnesium (1.6-2.3) mg/dL Total Bilirubin 3.6 H (0.2-1.3) mg/dL AST 112 H (14-36) U/L Alkaline Phosphatase 139 H (38-126) U/L Albumin (3.5-5.0) g/dL 09/23/17 09/23/1718 Range/Units 00:40 03:50 03:50 RBC 3.11 L (3.80-5.40) m/uL Hgb 10.1 L (11.4-16.0) gm/dL Hct 30.0 L (34.0-46.0) % Plt Count 79 L (150-450) k/uL Lymphocytes # 0.4 L (1.0-4.8) k/uL PT 14.8 H (9.0-12.0) sec INR 1.6 H (<1.2) Chloride 109 H (98-107) mmol/L Carbon Dioxide 20 L (22-30) mmol/L Creatinine 0.50 L (0.52-1.04) mg/dL Glucose 105 H (74-99) mg/dL POC Glucose (mg/dL) (75-99) mg/dL Plasma Lactic Acid Antoine (0.7-2.0) mmol/L Calcium 8.0 L (8.4-10.2) mg/dL Magnesium (1.6-2.3) mg/dL Total Bilirubin 3.3 H (0.2-1.3) mg/dL AST 80 H (14-36) U/L Alkaline Phosphatase (38-126) U/L Albumin 2.7 L (3.5-5.0) g/dL 09/23/17 09/23/17 09/23/17 Range/Units 03:50 04:39 08:22 RBC 2.84 L (3.80-5.40) m/uL Hgb 9.3 L (11.4-16.0) gm/dL Hct 27.0 L (34.0-46.0) % Plt Count 59 L (150-450) k/uL Lymphocytes # 0.3 L (1.0-4.8) k/uL PT (9.0-12.0) sec INR (<1.2) Chloride (98-107) mmol/L Carbon Dioxide (22-30) mmol/L Creatinine (0.52-1.04) mg/dL Glucose (74-99) mg/dL POC Glucose (mg/dL) 127 H (75-99) mg/dL Plasma Lactic Acid Antoine 3.0 H* (0.7-2.0) mmol/L Calcium (8.4-10.2) mg/dL Magnesium (1.6-2.3) mg/dL Total Bilirubin (0.2-1.3) mg/dL AST (14-36) U/L Alkaline Phosphatase (38-126) U/L Albumin (3.5-5.0) g/dL 09/23/17 09/23/17 Range/Units 08:22 08:22 RBC (3.80-5.40) m/uL Hgb (11.4-16.0) gm/dL Hct (34.0-46.0) % Plt Count (150-450) k/uL Lymphocytes # (1.0-4.8) k/uL PT (9.0-12.0) sec INR (<1.2) Chloride 109 H (98-107) mmol/L Carbon Dioxide (22-30) mmol/L Creatinine 0.45 L (0.52-1.04) mg/dL Glucose 155 H (74-99) mg/dL POC Glucose (mg/dL) (75-99) mg/dL Plasma Lactic Acid Antoine 3.3 H* (0.7-2.0) mmol/L Calcium 7.8 L (8.4-10.2) mg/dL Magnesium 1.2 L (1.6-2.3) mg/dL Total Bilirubin (0.2-1.3) mg/dL AST (14-36) U/L Alkaline Phosphatase (38-126) U/L Albumin (3.5-5.0) g/dL Assessment and Plan Assessment: Upper GI bleed, likely variceal -Male with Protonix and octreotide -Await GI consultation -Nothing by mouth status -Follow CBC every 6 hours Acute blood loss anemia secondary to above -Follow intermittent CBC -Likely will need iron replacement therapy on discharge Cirrhosis, compensated - MELD 17 - Await GI recs Alcohol abuse with impending DTs -CIWA -Thiamine replacement -Folic acid supplementation Tobacco abuse -Cessation -Nicotine replacement Lactic acidosis -Likely secondary to liver disease -Don't results of this with patient's known cirrhosis. DVT prophylaxis: SCDs Discussed with: Patient, RN, CM, Dr. Ricketts Anticipated discharge: 3-[address]: home A total of 40 minutes was spent on the care of this complex patient more than 50 % of the time was spent in counseling and care coordination.
[2017-09-23] MEDS ORDERED: PROPOFOL 10 MG/ML 20 ML VIAL IV ONE (12:00)
[2017-09-23] MEDS ORDERED: LIDOCAINE 1% INJ 10MG/ML (20 ML MDV) ONE (12:00)
[2017-09-23] MEDS ORDERED: IV FLUID CONTINUATION 1,000 ML IV ONE (12:01)
--- NOTE | 2017-09-23 12:18 | P.PCN ---
Date of Procedure: 09/23/17 Procedure(s) Performed: BRIEF HISTORY: Patient is a 57-year-old, pleasant, white female, admitted to the hospital with acute upper GI bleed. She has history of alcohol cirrhosis of the liver diagnosed 7 years ago and is actively drinking. She presented emergency room with multiple episodes of hematemesis and drop in hemoglobin from 11-9 g/dL. He presently on IV Protonix and IV Sandostatin drip.. PROCEDURE PERFORMED: Esophagogastroduodenoscopy with variceal ligation. PREOPERATIVE DIAGNOSIS: Cirrhosis of the liver/acute upper GI bleed. IV sedation per anesthesia. PROCEDURE: After informed consent was obtained, the patient was brought into the endoscopy unit. IV sedation was administered by Anesthesia under continuous monitoring. Initially the Olympus GIF-140 video endoscope was inserted into the mouth. Esophagus intubated without any difficulty. It was gradually advanced into the stomach and duodenum and carefully examined. The bulb and the second part of the duodenum appeared normal. The scope at this time was withdrawn to the stomach, adequately insufflated with air, and upon careful examination, mucosa of the antrum, body, appeared normal. This large amount of fresh blood noted in the fundus of the stomach that could not be adequately visualized. The scope was then withdrawn into the esophagus. There were small distal esophageal varices seen and one of the varix at 32 cm from the incisors had a small brown protuberance which appears to be the source of bleeding though there was no active bleeding from the varix identified. At this time the scope was removed and esophageal variceal ligation equipment was introduced onto the tip of the scope and esophagus intubated without any difficulty and was gradually advanced into the distal esophagus. In a spiral fashion but he still ligation was performed on the varix that appeared to be the source of bleeding and 3 other bands were deployed undigested varices. the patient tolerated the procedure well. IMPRESSION: 1. Large amount of blood in the fundus of the stomach. 2. Small distal esophageal varices, with one of the varix having the brownish protuberance suspicious for recent source of bleeding status post variceal ligation as described above. RECOMMENDATIONS: The findings of this examination were discussed with the patient. NG tube will be placed for continuous suction. IV Sandostatin and IV Protonix will be continued. CBC every 6 hours..
[2017-09-23] MEDS: BENZOCAINE SPRAY 1 CAN MUCOUS MEM PRN ×2 (13:17→19:28)
[2017-09-23] MEDS ORDERED: Magnesium Replacement Protocol 1 EACH MISC MISCELLANE PRN (13:55)
[2017-09-23] MEDS ORDERED: LIDOCAINE 2% GEL 5 ML TUBE TOPICAL PRN (13:57)
[2017-09-23] MEDS: KETOROLAC 30 MG/ML 1 ML VIAL IVP PRN ×2 (14:08→20:09)
[2017-09-23] MEDS: LEVOFLOXACIN 500MG-D5W PMX 500 MG in DEXTROSE/WATER 1 100ML.BAG IVPB SCH (14:24)
[2017-09-23 14:54] LABS: HCT 25.2 % (34.0-46.0); HGB 8.7 gm/dL (11.4-16.0); MCH 33.4 pg (25.0-35.0); MCHC 34.4 g/dL (31.0-37.0); MCV 97.1 fL (80.0-100.0); Mean Platelet Volume 9.7; RBC 2.59 m/uL (3.80-5.40); RDW 12.9 % (11.5-15.5); WBC 4.3 k/uL (3.8-10.6)
[2017-09-23 14:57] LABS: Platelet Count 58 k/uL (150-450)
[2017-09-23 15:02] LABS: INR 1.8 (<1.2); Prothrombin Time 16.6 sec (9.0-12.0)
[2017-09-23] MEDS: MAGNESIUM SULFATE-D5W PMX 1 GM in DEXTROSE/WATER 1 100ML.BAG IVPB SCH ×3 (15:45→18:21)
[2017-09-23 16:33] LABS: Hepatitis A Antibody IgM Non-Reactive (Non-Reactive); Hepatitis B Core IgM Non-Reactive (Non-Reactive)
[2017-09-23 21:11] LABS: HCT 21.8 % (34.0-46.0); HGB 7.5 gm/dL (11.4-16.0); MCH 33.3 pg (25.0-35.0); MCHC 34.5 g/dL (31.0-37.0); MCV 96.5 fL (80.0-100.0); Mean Platelet Volume 9.5; RBC 2.26 m/uL (3.80-5.40); RDW 12.8 % (11.5-15.5)
[2017-09-23 21:42] LABS: Platelet Count 53 k/uL (150-450)
[2017-09-23 22:17] LABS: Appearance,Urine Clear (Clear); Bacteria,Urine Rare /hpf; Bilirubin,Urine Negative (Negative); Blood,Urine Moderate (Negative); Color,Urine Yellow; Glucose,Urine (UA) Negative (Negative); Hyaline Casts,Urine 36 /lpf (0-2); Ketones,Urine Negative (Negative); Leukocyte Esterase,Urine Large (Negative); Mucus,Urine Rare /hpf; Nitrite,Urine Negative (Negative); PH, Urine 5.5 (5.0-8.0); Protein,Urine Negative (Negative); RBC,Urine 8 /hpf (0-5); Specific Gravity,Urine 1.021 (1.001-1.035); Squamous Epithelial Cell,Urine 3 /hpf (0-4); Urobilinogen,Urine <2.0 mg/dL (<2.0); WBC,Urine 66 /hpf (0-5)
[2017-09-23 22:25] LABS: Amphetamine Screen,Urine Not Detected (NotDetected); Barbiturate Screen,Urine Not Detected (NotDetected); Benzodiazepines Screen,Urine Not Detected (NotDetected); Cocaine Screen,Urine Not Detected (NotDetected); Methadone Screen, Urine Not Detected (NotDetected); Opiate Screen,Urine Not Detected (NotDetected); Oxycodone Screen, Urine Not Detected (NotDetected); Phencyclidine Screen,Urine Not Detected (NotDetected); Tricyclic Antidepressant,Urine Not Detected (NotDetected); Urn Cannabinoid Scrn Not Detected (NotDetected)
[2017-09-24] MEDS: SODIUM CHLORIDE 0.9% 1,000 ML IV SCH ×3 (01:20→22:09)
[2017-09-24] MEDS: OCTREOTIDE 200 MCG in SODIUM CHLORIDE 0.9% 100 ML IV SCH ×4 (01:20→19:54)
[2017-09-24 05:08] LABS: Basophils % (A) 0 %; Eosinophils # (A) 0.1 k/uL (0-0.7); Eosinophils % (A) 3 %; HCT 22.1 % (34.0-46.0); HGB 7.5 gm/dL (11.4-16.0); Lymphocytes # (A) 0.5 k/uL (1.0-4.8); Lymphocytes % (A) 17 %; MCH 32.7 pg (25.0-35.0); MCHC 33.7 g/dL (31.0-37.0); MCV 97.1 fL (80.0-100.0); Mean Platelet Volume 9.4; Monocytes # (A) 0.2 k/uL (0-1.0); Monocytes % (A) 7 %; Neutrophils # (A) 2.2 k/uL (1.3-7.7); Neutrophils % (A) 72 %; RBC 2.28 m/uL (3.80-5.40)
[2017-09-24 05:09] LABS: Platelet Count 53 k/uL (150-450)
[2017-09-24 05:18] LABS: Anion Gap 9 mmol/L; Blood Urea Nitrogen 22 mg/dL (7-17); Calcium 7.2 mg/dL (8.4-10.2); Carbon Dioxide 25 mmol/L (22-30); Chloride 110 mmol/L (98-107); Glucose 113 mg/dL (74-99); Magnesium 2.3 mg/dL (1.6-2.3); Phosphorus 2.4 mg/dL (2.5-4.5); Potassium 3.7 mmol/L (3.5-5.1); Sodium 144 mmol/L (137-145)
[2017-09-24] MEDS: KETOROLAC 30 MG/ML 1 ML VIAL IVP PRN (05:25)
[2017-09-24] MEDS: POTASSIUM CHLORIDE 10 MEQ in WATER FOR INJECTION 1 100ML.BAG IVPB SCH ×2 (06:58→08:07)
[2017-09-24] MEDS: PANTOPRAZOLE 40 MG/10 ML VIAL IV SCH (08:10)
[2017-09-24 08:26] LABS: INR 1.7 (<1.2); Prothrombin Time 15.8 sec (9.0-12.0)
--- NOTE | 2017-09-24 09:15 | P.PN ---
Subjective Progress Note Date: 09/24/17 Principal diagnosis: GI bleed Progress note dated 09/24/2017 This is a 57-year-old female who presented to the emergency department initially with hematemesis. She does have a history of alcoholic liver disease and liver cirrhosis from chronic alcohol abuse. She used to drink heavily but stopped for a while and then started drinking again. She drinks about 10 beers a day. The patient denied any abdominal pain or abdominal discomfort. Anyway, the patient was here in the ICU and yesterday went for an EGD. She had banding of esophageal varices 4. She remains on octreotide her Sandostatin 50 mcg/h. She is on IV of saline at 1 20 mL an hour. Not receiving any supplemental oxygen. Eventually, the NG tube will come out and the Sandostatin will be discontinued. If she stable.. A 46 hours afterwards, she can be transferred out to the general medical floor. Currently doing well. No major issues or problems overnight. Objective - Vital Signs Vital signs: Vital Signs Temp 98.3 F 09/24/17 04:00 Pulse 113 H 09/24/17 07:00 Resp 19 09/24/17 07:00 BP 117/70 09/24/17 07:00 Pulse Ox 94 L 09/24/17 07:00 Intake & Output 09/23/17 09/24/17 09/24/17 18:59 06:59 18:59 Intake Total 1729.262 1805 120 Output Total 4 175 400 Balance 0863.553 8836 -280 Weight 77.2 kg Intake: IV 1250 1440 120 Sodium Chloride 0.9% 1, 1200 1440 120 000 ml @ 120 mls/hr IV . Q8H20M [facility] Rx#:[id number] Intake, IV Titration 659.233 303 Amount Levofloxacin 500Mg-D5w 100 Pmx 500 mg In Dextrose/ Water 1 100ml.bag @ 100 mls/hr IVPB Q24H [facility] Rx#: [id number] Magnesium Sulfate-D5w Pmx 300 1 gm In Dextrose/Water 1 100ml.bag @ 100 mls/hr IVPB Q1H [facility] Rx#: [id number] Octreotide 200 mcg In 259.233 303 Sodium Chloride 0.9% 100 ml @ 50 MCG/HR 25.25 mls/ hr IV .Q4H [facility] Rx#: [id number] Output: Urine 175 400 Emesis 4 Other: Voiding Method Bedpan Bedpan # Voids 1 - Exam No acute distress, oriented 3. NG tube in place. HEENT examination is grossly unremarkable. Mucous membranes are moist. No oral lesions. Neck supple. Full range of motion. No adenopathy thyromegaly or neck vein distention. Cardiovascular examination reveals regular rhythm rate. S1-S2 normal. No S3 or S4. No discernible murmur noted. Lungs reveal clear breath sounds. Her sounds are equal bilaterally. No adventitious lung sounds including wheezes rhonchi or crackles. Abdomen soft bowel sounds are heard. No masses or tenderness. Extremities are intact. No cyanosis clubbing or edema. Skin is noted to have spider angiomata, a stigmata of chronic liver disease Neurologic examination is brief but nonfocal. - Labs CBC & Chem 7: 09/24/17 04:50 09/24/17 04:50 Labs: Abnormal Lab Results - Last 24 Hours (Table) 09/23/17 09/23/17 09/23/17 Range/Units 08:22 14:35 14:35 WBC (3.8-10.6) k/uL RBC 2.59 L (3.80-5.40) m/uL Hgb 8.7 L (11.4-16.0) gm/dL Hct 25.2 L (34.0-46.0) % Plt Count 58 L (150-450) k/uL Lymphocytes # (1.0-4.8) k/uL PT 16.6 H (9.0-12.0) sec INR 1.8 H (<1.2) Chloride 109 H (98-107) mmol/L BUN (7-17) mg/dL Creatinine 0.45 L (0.52-1.04) mg/dL Glucose 155 H (74-99) mg/dL Calcium 7.8 L (8.4-10.2) mg/dL Phosphorus (2.5-4.5) mg/dL Magnesium 1.2 L (1.6-2.3) mg/dL Urine Blood (Negative) Ur Leukocyte Esterase (Negative) Urine RBC (0-5) /hpf Urine WBC (0-5) /hpf Urine Bacteria (None) /hpf Hyaline Casts (0-2) /lpf Urine Mucus (None) /hpf 09/23/17 09/23/17 09/24/17 Range/Units 20:45 22:05 04:50 WBC 3.0 L (3.8-10.6) k/uL RBC 2.26 L 2.28 L (3.80-5.40) m/uL Hgb 7.5 L 7.5 L (11.4-16.0) gm/dL Hct 21.8 L 22.1 L (34.0-46.0) % Plt Count 53 L 53 L (150-450) k/uL Lymphocytes # 0.5 L (1.0-4.8) k/uL PT (9.0-12.0) sec INR (<1.2) Chloride (98-107) mmol/L BUN (7-17) mg/dL Creatinine (0.52-1.04) mg/dL Glucose (74-99) mg/dL Calcium (8.4-10.2) mg/dL Phosphorus (2.5-4.5) mg/dL Magnesium (1.6-2.3) mg/dL Urine Blood Moderate H (Negative) Ur Leukocyte Esterase Large H (Negative) Urine RBC 8 H (0-5) /hpf Urine WBC 66 H (0-5) /hpf Urine Bacteria Rare H (None) /hpf Hyaline Casts 36 H (0-2) /lpf Urine Mucus Rare H (None) /hpf 09/24/17 09/24/17 Range/Units 04:50 08:00 WBC (3.8-10.6) k/uL RBC (3.80-5.40) m/uL Hgb (11.4-16.0) gm/dL Hct (34.0-46.0) % Plt Count (150-450) k/uL Lymphocytes # (1.0-4.8) k/uL PT 15.8 H (9.0-12.0) sec INR 1.7 H (<1.2) Chloride 110 H (98-107) mmol/L BUN 22 H (7-17) mg/dL Creatinine (0.52-1.04) mg/dL Glucose 113 H (74-99) mg/dL Calcium 7.2 L (8.4-10.2) mg/dL Phosphorus 2.4 L (2.5-4.5) mg/dL Magnesium (1.6-2.3) mg/dL Urine Blood (Negative) Ur Leukocyte Esterase (Negative) Urine RBC (0-5) /hpf Urine WBC (0-5) /hpf Urine Bacteria (None) /hpf Hyaline Casts (0-2) /lpf Urine Mucus (None) /hpf Assessment and Plan Assessment: Assessment Alcoholic liver disease with alcoholic cirrhosis Upper GI bleed, likely secondary to esophageal varices or gastric/duodenal ulcer. Status post EGD with banding of esophageal varices 4, on September 23. History of chronic alcohol abuse at 10 beers per day Chronic tobacco use Noncompliance with general medical care Plan: Plan dated 09/23/2017 The patient will probably have a scope today. Was suspected EGD to rule out esophageal varices. The patient currently is on octreotide at 50 g per hour. The patient's also receiving saline IV 120 mL an hour. Not requiring any supplemental oxygen. Hemoglobin stable at 10.1. Labs and x-rays are reviewed. Prognosis is guarded. He concerned about full-blown alcohol withdrawal syndrome, i.e. delirium tremens. Additional recommendations and suggestions are forthcoming. For the time being, she will stay here in the ICU. I did speak to the hospitalist about her. Also casework manager is involved in terms of her issue with lack of insurance. Plan dated 09/24/2017 The patient did well with an EGD yesterday. She had banding of esophageal varices 4. She remains on octreotide. She still has an NG tube in place. She 's not receiving any supplemental oxygen. She denies any additional bleeding. She denies any abdominal pain or Keith discomfort. No hematochezia or hematemesis or melena. We'll continue to follow. Hopefully the NG tube, out today in the octreotide can be discontinued and the patient can be discharged out of the unit later today if stable. critical care time is 32 minutes Time with Patient: Greater than 30
[2017-09-24] MEDS: FOLIC ACID 1 MG TAB PO SCH (12:48)
[2017-09-24] MEDS: LEVOFLOXACIN 500MG-D5W PMX 500 MG in DEXTROSE/WATER 1 100ML.BAG IVPB SCH (13:39)
--- NOTE | 2017-09-24 13:41 | P.PN ---
Subjective Progress Note Date: 09/24/17 Principal diagnosis: GI Bleed S/P EGD yesterday; variceal ligation x 4. No bleeding. Green bile via NGT. Hemoglobin stable. Denies abdominal pain. Objective - Vital Signs Vital signs: Vital Signs Temp 98.1 F 09/24/17 12:00 Pulse 80 09/24/17 12:00 Resp 10 L 09/24/17 12:00 BP 119/85 09/24/17 12:00 Pulse Ox 94 L 09/24/17 12:00 Intake & Output 09/23/17 09/24/17 09/24/17 18:59 06:59 18:59 Intake Total 6956.712 0504 821 Output Total 4 175 850 Balance 6665.747 1548 -29 Weight 77.2 kg Intake: IV 1250 1440 720 Sodium Chloride 0.9% 1, 1200 1440 720 000 ml @ 120 mls/hr IV . Q8H20M [facility] Rx#:[id number] Intake, IV Titration 659.233 303 101 Amount Levofloxacin 500Mg-D5w 100 Pmx 500 mg In Dextrose/ Water 1 100ml.bag @ 100 mls/hr IVPB Q24H [facility] Rx#: [id number] Magnesium Sulfate-D5w Pmx 300 1 gm In Dextrose/Water 1 100ml.bag @ 100 mls/hr IVPB Q1H [facility] Rx#: [id number] Octreotide 200 mcg In 259.233 303 101 Sodium Chloride 0.9% 100 ml @ 50 MCG/HR 25.25 mls/ hr IV .Q4H [facility] Rx#: [id number] Output: Urine 175 850 Emesis 4 Other: Voiding Method Bedpan Bedpan Bedpan # Voids 1 - Exam General appearance: The patient is alert, oriented, in no acute distress. HET: Head is normocephalic and atraumatic. Pupils are equal and reactive. Oropharynx is clear without lesions. NG tube clamped with green bile in tubing and cancer. Neck: Supple without lymphadenopathy. Trachea midline. Heart: S1 S2. Regular rate and rhythm. Lungs: No crackles or wheezes are heard. Abdomen: Soft, nontender, mildly bloated with bowel sounds. No peritoneal signs. No palpable organomegaly or masses. Extremities: Normal skin color and turgor. No cyanosis, rash, ulceration, clubbing, or edema. Radial and pedal pulses are 2/4 bilaterally. Neurological: No focal deficits. Strength and sensation are grossly intact. - Labs CBC & Chem 7: 09/24/17 04:50 09/24/17 04:50 Labs: Abnormal Lab Results - Last 24 Hours (Table) 09/23/17 09/23/17 09/23/17 Range/Units 14:35 14:35 20:45 WBC (3.8-10.6) k/uL RBC 2.59 L 2.26 L (3.80-5.40) m/uL Hgb 8.7 L 7.5 L (11.4-16.0) gm/dL Hct 25.2 L 21.8 L (34.0-46.0) % Plt Count 58 L 53 L (150-450) k/uL Lymphocytes # (1.0-4.8) k/uL PT 16.6 H (9.0-12.0) sec INR 1.8 H (<1.2) Chloride (98-107) mmol/L BUN (7-17) mg/dL Glucose (74-99) mg/dL Calcium (8.4-10.2) mg/dL Phosphorus (2.5-4.5) mg/dL Urine Blood (Negative) Ur Leukocyte Esterase (Negative) Urine RBC (0-5) /hpf Urine WBC (0-5) /hpf Urine Bacteria (None) /hpf Hyaline Casts (0-2) /lpf Urine Mucus (None) /hpf 09/23/17 09/24/17 09/24/17 Range/Units 22:05 04:50 04:50 WBC 3.0 L (3.8-10.6) k/uL RBC 2.28 L (3.80-5.40) m/uL Hgb 7.5 L (11.4-16.0) gm/dL Hct 22.1 L (34.0-46.0) % Plt Count 53 L (150-450) k/uL Lymphocytes # 0.5 L (1.0-4.8) k/uL PT (9.0-12.0) sec INR (<1.2) Chloride 110 H (98-107) mmol/L BUN 22 H (7-17) mg/dL Glucose 113 H (74-99) mg/dL Calcium 7.2 L (8.4-10.2) mg/dL Phosphorus 2.4 L (2.5-4.5) mg/dL Urine Blood Moderate H (Negative) Ur Leukocyte Esterase Large H (Negative) Urine RBC 8 H (0-5) /hpf Urine WBC 66 H (0-5) /hpf Urine Bacteria Rare H (None) /hpf Hyaline Casts 36 H (0-2) /lpf Urine Mucus Rare H (None) /hpf 09/24/17 Range/Units 08:00 WBC (3.8-10.6) k/uL RBC (3.80-5.40) m/uL Hgb (11.4-16.0) gm/dL Hct (34.0-46.0) % Plt Count (150-450) k/uL Lymphocytes # (1.0-4.8) k/uL PT 15.8 H (9.0-12.0) sec INR 1.7 H (<1.2) Chloride (98-107) mmol/L BUN (7-17) mg/dL Glucose (74-99) mg/dL Calcium (8.4-10.2) mg/dL Phosphorus (2.5-4.5) mg/dL Urine Blood (Negative) Ur Leukocyte Esterase (Negative) Urine RBC (0-5) /hpf Urine WBC (0-5) /hpf Urine Bacteria (None) /hpf Hyaline Casts (0-2) /lpf Urine Mucus (None) /hpf Assessment and Plan (1) Acute upper GI bleed Narrative/Plan: Secondary to variceal bleed status post EGD variceal ligation 4. Current Visit: Yes Status: Acute Code(s): K92.2 - GASTROINTESTINAL HEMORRHAGE, UNSPECIFIED SNOMED Code(s): 97599736 (2) Hematemesis Current Visit: Yes Status: Acute Code(s): K92.0 - HEMATEMESIS SNOMED Code( s): 7613343 (3) Alcoholic cirrhosis of liver Current Visit: Yes Status: Acute Code(s): K70.30 - ALCOHOLIC CIRRHOSIS OF LIVER WITHOUT ASCITES SNOMED Code(s): 466606084 (4) Chronic alcohol dependence, continuous Current Visit: Yes Status: Acute Code(s): F10.20 - ALCOHOL DEPENDENCE, UNCOMPLICATED SNOMED Code(s): 600886517 (5) Acute blood loss anemia Current Visit: Yes Status: Acute Code(s): D62 - ACUTE POSTHEMORRHAGIC ANEMIA SNOMED Code(s): 276220173 (6) Thrombocytopenia Current Visit: Yes Status: Acute Code(s): D69.6 - THROMBOCYTOPENIA, UNSPECIFIED SNOMED Code(s): 545123210 (7) Coagulopathy Current Visit: Yes Status: Acute Code(s): D68.9 - COAGULATION DEFECT, UNSPECIFIED SNOMED Code(s): 32937417 (8) Varices of other sites Narrative/Plan: Umbilical varices per CT Current Visit: Yes Status: Acute Code(s): I86.8 - VARICOSE VEINS OF OTHER SPECIFIED SITES SNOMED Code(s): 512812443 Plan: 1. AFP marker reviewed 4.6. Continue Levaquin prophylaxis prevention for spontaneous bacterial peritonitis in a patient admitted with acute GI bleed secondary to varices. 2. Remove NG tube. Start clear liquids. CBC in a.m. 3. Discontinue intravenous Sandostatin. Continue Protonix 40 mg IV twice daily. 4. We'll continue to follow with you. Assessment and plan a care discussed with Dr. Magana
--- NOTE | 2017-09-24 16:29 | P.PN ---
Subjective Progress Note Date: 09/24/17 Principal diagnosis: Hematemesis Patient is a 57-year-old female with a known history of cirrhosis, alcohol abuse, and tobacco abuse who presented to the emergency department with hematemesis. On arrival she was found to be slightly tachycardic with a pulse of 106. Blood pressure was normal at 145/93. Initial laboratory analysis showed a normal hemoglobin. Platelets were slightly low at 91. INR elevated at 1.6. Her lactic acid was also a 3.5. AST and total bilirubin were mildly elevated. She continued to have some vomiting in the emergency department. She was placed on a Protonix IV push and on octreotide drip. Arrangements were made for her to be admitted to the ICU. Her hemoglobin then down trended to 10.1. She was seen by GI 09/23 and underwent EGD. She was found have one bleeding per esophageal varices and 3 additional all of which were banded. She had gross amounts of blood in the stomach and an NG tube was placed. She was maintained on Protonix and Sandostatin. In the morning of 09/24 her hemoglobin remained stable. She admits to a history of cirrhosis and had started drinking approximately one year ago. She had been followed at the [facility] in [place] prior to this however she states she lost her VA benefits and care management has been working on obtaining the VA benefits again. Patient seen and examined at bedside. No additional nausea or vomiting. No diarrhea. No chest pain or shortness of breath. She is overall feeling well. No weakness. No shaking or agitation. Objective - Vital Signs Vital signs: Vital Signs Temp 98.1 F 09/24/17 12:00 Pulse 91 09/24/17 15:00 Resp 16 09/24/17 15:00 BP 110/74 09/24/17 15:00 Pulse Ox 98 09/24/17 15:00 Intake & Output 09/23/17 09/24/17 09/24/17 18:59 06:59 18:59 Intake Total 3437.646 2499 1181 Output Total 4 175 850 Balance 9301.092 1074 331 Weight 77.2 kg Intake: IV 1250 1440 1080 Sodium Chloride 0.9% 1, 1200 1440 1080 000 ml @ 120 mls/hr IV . Q8H20M [facility] Rx#:[id number] Intake, IV Titration 659.233 303 101 Amount Levofloxacin 500Mg-D5w 100 Pmx 500 mg In Dextrose/ Water 1 100ml.bag @ 100 mls/hr IVPB Q24H [facility] Rx#: [id number] Magnesium Sulfate-D5w Pmx 300 1 gm In Dextrose/Water 1 100ml.bag @ 100 mls/hr IVPB Q1H [facility] Rx#: [id number] Octreotide 200 mcg In 259.233 303 101 Sodium Chloride 0.9% 100 ml @ 50 MCG/HR 25.25 mls/ hr IV .Q4H [facility] Rx#: [id number] Output: Urine 175 850 Emesis 4 Other: Voiding Method Bedpan Bedpan Bedpan # Voids 1 1 - Exam General: non toxic, no distress, appears at stated age Derm: warm, dry Head: atraumatic, normocephalic, symmetric Eyes: EOMI, no lid lag, anicteric sclera Mouth: no lip lesion, mucus membranes moist Cardiovascular: S1S2 reg, no murmur, positive posterior tibial pulse bilateral, Lungs: Decreased breath sounds bilateral bases, no rhonchi, no rales , no accessory muscle use Abdominal: soft, nontender to palpation, no guarding, no appreciable organomegaly Ext: no gross muscle atrophy, no edema, no contractures Neuro: CN II-XI grossly intact, no focal neuro deficits, no asterixis Psych: Alert, oriented, appropriate affect , appears anxious - Labs CBC & Chem 7: 09/24/17 04:50 09/24/17 04:50 Labs: Abnormal Lab Results - Last 24 Hours (Table) 09/23/17 09/23/17 09/24/17 Range/Units 20:45 22:05 04:50 WBC 3.0 L (3.8-10.6) k/uL RBC 2.26 L 2.28 L (3.80-5.40) m/uL Hgb 7.5 L 7.5 L (11.4-16.0) gm/dL Hct 21.8 L 22.1 L (34.0-46.0) % Plt Count 53 L 53 L (150-450) k/uL Lymphocytes # 0.5 L (1.0-4.8) k/uL PT (9.0-12.0) sec INR (<1.2) Chloride (98-107) mmol/L BUN (7-17) mg/dL Glucose (74-99) mg/dL Calcium (8.4-10.2) mg/dL Phosphorus (2.5-4.5) mg/dL Urine Blood Moderate H (Negative) Ur Leukocyte Esterase Large H (Negative) Urine RBC 8 H (0-5) /hpf Urine WBC 66 H (0-5) /hpf Urine Bacteria Rare H (None) /hpf Hyaline Casts 36 H (0-2) /lpf Urine Mucus Rare H (None) /hpf 09/24/17 09/24/17 Range/Units 04:50 08:00 WBC (3.8-10.6) k/uL RBC (3.80-5.40) m/uL Hgb (11.4-16.0) gm/dL Hct (34.0-46.0) % Plt Count (150-450) k/uL Lymphocytes # (1.0-4.8) k/uL PT 15.8 H (9.0-12.0) sec INR 1.7 H (<1.2) Chloride 110 H (98-107) mmol/L BUN 22 H (7-17) mg/dL Glucose 113 H (74-99) mg/dL Calcium 7.2 L (8.4-10.2) mg/dL Phosphorus 2.4 L (2.5-4.5) mg/dL Urine Blood (Negative) Ur Leukocyte Esterase (Negative) Urine RBC (0-5) /hpf Urine WBC (0-5) /hpf Urine Bacteria (None) /hpf Hyaline Casts (0-2) /lpf Urine Mucus (None) /hpf Assessment and Plan Assessment: Upper GI bleed secondary to esophageal varices status post banding -Continue with Protonix, has completed octreotide therapy -GI recommendations appreciated -Continue nothing by mouth status and NG tube until seen again by GI. -Repeat INR -Repeat CBC in a.m. Acute blood loss anemia secondary to above -Follow CBC -Likely will need iron replacement therapy on discharge Cirrhosis, compensated -GI recommendations appreciated -On Levaquin for SBP prophylaxis -We need propranolol at discharge however BP is still labile Coagulopathy and thrombocytopenia secondary to long-standing history of liver disease -Follow intermittent CBC -Coagulopathy stable Alcohol abuse with impending DTs -WA protocol, Librium -Thiamine replacement -Folic acid supplementation Tobacco abuse -Cessation -Nicotine replacement Lactic acidosis -Likely secondary to liver disease -Would Not follow results of this with patient's known cirrhosis. Transaminitis likely related to cirrhosis and alcohol abuse -Has already downtrending -No need to continue to follow DVT prophylaxis: SCDs Discussed with: Patient, RN, CM Anticipated discharge:1-[address]: home A total of 37 minutes was spent on the care of this complex patient more than 50 % of the time was spent in counseling and care coordination.
[2017-09-24] MEDS: chlordiazePOXIDE 5 MG CAPSULE PO SCH ×2 (17:50→22:48)
[2017-09-24 18:03] VITALS: PULSE 83
[2017-09-25] MEDS: SODIUM CHLORIDE 0.9% 1,000 ML IV SCH ×2 (05:45→14:21)
[2017-09-25 07:16] VITALS: BP 122/70; RESP 17; TEMP 97.6
[2017-09-25 07:43] LABS: Basophils % (A) 0 %; Eosinophils # (A) 0.2 k/uL (0-0.7); Eosinophils % (A) 5 %; HCT 23.6 % (34.0-46.0); Lymphocytes # (A) 0.6 k/uL (1.0-4.8); Lymphocytes % (A) 16 %; MCH 32.8 pg (25.0-35.0); MCHC 33.9 g/dL (31.0-37.0); MCV 96.7 fL (80.0-100.0); Mean Platelet Volume 10.2; Monocytes # (A) 0.3 k/uL (0-1.0); Monocytes % (A) 8 %; Neutrophils # (A) 2.4 k/uL (1.3-7.7); Neutrophils % (A) 68 %; RBC 2.44 m/uL (3.80-5.40); WBC 3.6 k/uL (3.8-10.6)
[2017-09-25 07:50] LABS: INR 1.6 (<1.2); Prothrombin Time 14.9 sec (9.0-12.0)
[2017-09-25 08:07] LABS: Anion Gap 9 mmol/L; Blood Urea Nitrogen 11 mg/dL (7-17); Calcium 7.1 mg/dL (8.4-10.2); Carbon Dioxide 22 mmol/L (22-30); Chloride 107 mmol/L (98-107); Glucose 92 mg/dL (74-99); Magnesium 1.7 mg/dL (1.6-2.3); Phosphorus 1.8 mg/dL (2.5-4.5); Potassium 3.7 mmol/L (3.5-5.1); Sodium 138 mmol/L (137-145)
[2017-09-25 08:36] LABS: Hypochromasia (M) Present
[2017-09-25 08:37] LABS: Platelet Count 56 k/uL (150-450)
[2017-09-25] MEDS: chlordiazePOXIDE 5 MG CAPSULE PO SCH ×2 (08:49→16:09)
[2017-09-25] MEDS ORDERED: PANTOPRAZOLE 40 MG/10 ML VIAL IV SCH (09:00)
--- NOTE | 2017-09-25 10:27 | P.PN ---
Subjective Progress Note Date: 09/25/17 Principal diagnosis: GI Bleed S/P EGD ; variceal ligation x 4. No bleeding. In clear liquids. Hemoglobin stable 8.0. Denies abdominal pain. Objective - Vital Signs Vital signs: Vital Signs Temp 97.6 F 09/25/17 07:15 Pulse 83 09/25/17 07:15 Resp 17 09/25/17 07:15 BP 122/70 09/25/17 07:15 Pulse Ox 97 09/24/17 22:36 Intake & Output 09/24/17 09/25/17 09/25/17 18:59 06:59 18:59 Intake Total 1541 1640 Output Total 850 Balance 691 1640 Weight 70.5 kg Intake: IV 1440 960 Sodium Chloride 0.9% 1, 1440 960 000 ml @ 120 mls/hr IV . Q8H20M [facility] Rx#:[id number] Intake, IV Titration 101 Amount Octreotide 200 mcg In 101 Sodium Chloride 0.9% 100 ml @ 50 MCG/HR 25.25 mls/ hr IV .Q4H [facility] Rx#: [id number] Oral 680 Output: Urine 850 Other: Voiding Method Bedpan Bedside Commode Toilet # Voids 1 3 - Exam General appearance: The patient is alert, oriented, in no acute distress. HET: Head is normocephalic and atraumatic. Pupils are equal and reactive. Oropharynx is clear without lesions. Neck: Supple without lymphadenopathy. Trachea midline. Heart: S1 S2. Regular rate and rhythm. Lungs: No crackles or wheezes are heard. Abdomen: Soft, nontender, mildly bloated with bowel sounds. No peritoneal signs. No palpable organomegaly or masses. Extremities: Normal skin color and turgor. No cyanosis, rash, ulceration, clubbing, or edema. Radial and pedal pulses are 2/4 bilaterally. Neurological: No focal deficits. Strength and sensation are grossly intact. - Labs CBC & Chem 7: 09/25/17 07:01 09/25/17 07:01 Labs: Abnormal Lab Results - Last 24 Hours (Table) 09/25/17 09/25/17 09/25/17 Range/Units 07:01 07:01 07:01 WBC 3.6 L (3.8-10.6) k/uL RBC 2.44 L (3.80-5.40) m/uL Hgb 8.0 L (11.4-16.0) gm/dL Hct 23.6 L (34.0-46.0) % Plt Count 56 L (150-450) k/uL Lymphocytes # 0.6 L (1.0-4.8) k/uL PT 14.9 H (9.0-12.0) sec INR 1.6 H (<1.2) Calcium 7.1 L (8.4-10.2) mg/dL Phosphorus 1.8 L (2.5-4.5) mg/dL Assessment and Plan (1) Acute upper GI bleed Narrative/Plan: Secondary to variceal bleed status post EGD variceal ligation 4. Current Visit: Yes Status: Acute Code(s): K92.2 - GASTROINTESTINAL HEMORRHAGE, UNSPECIFIED SNOMED Code(s): 25157749 (2) Hematemesis Current Visit: Yes Status: Acute Code(s): K92.0 - HEMATEMESIS SNOMED Code( s): 0788808 (3) Alcoholic cirrhosis of liver Current Visit: Yes Status: Acute Code(s): K70.30 - ALCOHOLIC CIRRHOSIS OF LIVER WITHOUT ASCITES SNOMED Code(s): 705470372 (4) Chronic alcohol dependence, continuous Current Visit: Yes Status: Acute Code(s): F10.20 - ALCOHOL DEPENDENCE, UNCOMPLICATED SNOMED Code(s): 594087227 (5) Acute blood loss anemia Current Visit: Yes Status: Acute Code(s): D62 - ACUTE POSTHEMORRHAGIC ANEMIA SNOMED Code(s): 148629621 (6) Thrombocytopenia Current Visit: Yes Status: Acute Code(s): D69.6 - THROMBOCYTOPENIA, UNSPECIFIED SNOMED Code(s): 663989572 (7) Coagulopathy Current Visit: Yes Status: Acute Code(s): D68.9 - COAGULATION DEFECT, UNSPECIFIED SNOMED Code(s): 90801389 (8) Varices of other sites Narrative/Plan: Umbilical varices per CT Current Visit: Yes Status: Acute Code(s): I86.8 - VARICOSE VEINS OF OTHER SPECIFIED SITES SNOMED Code(s): 092967422 Plan: 1. Advance to low-residue diet. 2. Protonix 40 mg daily. 3. Inderal 10 mg 3 times a day. 4. Alcohol abstinence strongly advised. 5. Return to office in 2-3 weeks for reevaluation. Discharge per medicine if advanced diet is tolerated. Prescriptions provided. Assessment and plan a care discussed with Dr. Magana
[2017-09-25] MEDS ORDERED: SODIUM PHOSPHATE 10 MMOL in SODIUM CHLORIDE 0.9% 250 ML IVPB ONE (11:00)
[2017-09-25] MEDS: FOLIC ACID 1 MG TAB PO SCH (12:17)
[2017-09-25] MEDS: POTAS-SOD-PHOS 278-164-250 MG 1 EACH PACKET PO SCH ×2 (12:17→16:09)
--- NOTE | 2017-09-25 12:47 | P.PN ---
Subjective Progress Note Date: 09/25/17 Principal diagnosis: GI bleed Progress note dated 09/24/2017 This is a 57-year-old female who presented to the emergency department initially with hematemesis. She does have a history of alcoholic liver disease and liver cirrhosis from chronic alcohol abuse. She used to drink heavily but stopped for a while and then started drinking again. She drinks about 10 beers a day. The patient denied any abdominal pain or abdominal discomfort. Anyway, the patient was here in the ICU and yesterday went for an EGD. She had banding of esophageal varices 4. She remains on octreotide her Sandostatin 50 mcg/h. She is on IV of saline at 1 20 mL an hour. Not receiving any supplemental oxygen. Eventually, the NG tube will come out and the Sandostatin will be discontinued. If she stable.. A 46 hours afterwards, she can be transferred out to the general medical floor. Currently doing well. No major issues or problems overnight. Progress note dated 09/25/2017 This is a 57-year-old female who presented to the emergency department initially with hematemesis. She does have a history of alcoholic liver disease and liver cirrhosis from chronic alcohol abuse. She used to drink very heavily stopped for a while and started drinking again. She drinks about 10 beers a day. The patient went for an EGD. She had bleeding esophageal varices and they were banded 4. She was on octreotide for. A time and IV fluids. She was transferred out of the ICU when she is ready for discharge. She's doing well. Not receiving any supplemental oxygen. She promises us that she will drink anymore. Other than that she's doing well. No follow-up in our office as necessary at this time. She's not had any further bleeding. Objective - Vital Signs Vital signs: Vital Signs Temp 97.6 F 09/25/17 07:15 Pulse 83 09/25/17 07:15 Resp 17 09/25/17 07:15 BP 122/70 09/25/17 07:15 Pulse Ox 97 09/24/17 22:36 Intake & Output 09/24/17 09/25/17 09/25/17 18:59 06:59 18:59 Intake Total 1541 1640 Output Total 850 Balance 691 1640 Weight 70.5 kg Intake: IV 1440 960 Sodium Chloride 0.9% 1, 1440 960 000 ml @ 120 mls/hr IV . Q8H20M [facility] Rx#:[id number] Intake, IV Titration 101 Amount Octreotide 200 mcg In 101 Sodium Chloride 0.9% 100 ml @ 50 MCG/HR 25.25 mls/ hr IV .Q4H [facility] Rx#: [id number] Oral 680 Output: Urine 850 Other: Voiding Method Bedpan Bedside Commode Toilet # Voids 1 3 - Exam No acute distress, oriented 3. NG tube has been removed. HEENT examination is grossly unremarkable. Mucous membranes are moist. No oral lesions. Neck supple. Full range of motion. No adenopathy thyromegaly or neck vein distention. Cardiovascular examination reveals regular rhythm rate. S1-S2 normal. No S3 or S4. No discernible murmur noted. Lungs reveal clear breath sounds. Her sounds are equal bilaterally. No adventitious lung sounds including wheezes rhonchi or crackles. Abdomen soft bowel sounds are heard. No masses or tenderness. Extremities are intact. No cyanosis clubbing or edema. Skin is noted to have spider angiomata, a stigmata of chronic liver disease Neurologic examination is brief but nonfocal. - Labs CBC & Chem 7: 09/25/17 07:01 09/25/17 07:01 Labs: Abnormal Lab Results - Last 24 Hours (Table) 09/25/17 09/25/17 09/25/17 Range/Units 07:01 07:01 07:01 WBC 3.6 L (3.8-10.6) k/uL RBC 2.44 L (3.80-5.40) m/uL Hgb 8.0 L (11.4-16.0) gm/dL Hct 23.6 L (34.0-46.0) % Plt Count 56 L (150-450) k/uL Lymphocytes # 0.6 L (1.0-4.8) k/uL PT 14.9 H (9.0-12.0) sec INR 1.6 H (<1.2) Calcium 7.1 L (8.4-10.2) mg/dL Phosphorus 1.8 L (2.5-4.5) mg/dL Assessment and Plan Assessment: Assessment Alcoholic liver disease with alcoholic cirrhosis Upper GI bleed, likely secondary to esophageal varices or gastric/duodenal ulcer. Status post EGD with banding of esophageal varices 4, on September 23. History of chronic alcohol abuse at 10 beers per day Chronic tobacco use Noncompliance with general medical care Plan: Plan dated 09/23/2017 The patient will probably have a scope today. Was suspected EGD to rule out esophageal varices. The patient currently is on octreotide at 50 g per hour. The patient's also receiving saline IV 120 mL an hour. Not requiring any supplemental oxygen. Hemoglobin stable at 10.1. Labs and x-rays are reviewed. Prognosis is guarded. He concerned about full-blown alcohol withdrawal syndrome, i.e. delirium tremens. Additional recommendations and suggestions are forthcoming. For the time being, she will stay here in the ICU. I did speak to the hospitalist about her. Also case fitter is involved in terms of her issue with lack of insurance. Plan dated 09/24/2017 The patient did well with an EGD yesterday. She had banding of esophageal varices 4. She remains on octreotide. She still has an NG tube in place. She 's not receiving any supplemental oxygen. She denies any additional bleeding. She denies any abdominal pain or Keith discomfort. No hematochezia or hematemesis or melena. We'll continue to follow. Hopefully the NG tube, out today in the octreotide can be discontinued and the patient can be discharged out of the unit later today if stable. critical care time is 32 minutes Plan dated 09/25/2017 The patient seems be doing relatively well. The patient could be discharged home. She states that she was told that she will be discharged. She has a follow-up with her primary doctor. Encouraged her not to drink anymore. She understands. Additional recommendations and suggestions are per the hospitalist service. Follow as needed. Time with Patient: Less than 30
[2017-09-25] MEDS: LEVOFLOXACIN 500MG-D5W PMX 500 MG in DEXTROSE/WATER 1 100ML.BAG IVPB SCH (14:17)
--- NOTE | 2017-09-25 16:14 | P.DS ---
Providers Date of admission: 09/23/17 02:14 Expected date of discharge: 09/25/17 Attending physician: Reynold Peter MD Consults: 09/23/17 02:14 Consult Physician Stat Consulting Provider: Boni Ricketts Reason/Comments: critical care Do you want consulting provider notified?: Already Contacted Primary care physician: Stated None - Discharge Diagnosis(es) (1) Esophageal varices Current Visit: Yes Status: Acute (2) Acute upper GI bleed Current Visit: Yes Status: Acute (3) Acute blood loss anemia Current Visit: Yes Status: Acute (4) Alcoholic cirrhosis of liver Current Visit: Yes Status: Acute (5) Coagulopathy Current Visit: Yes Status: Acute (6) Thrombocytopenia Current Visit: Yes Status: Acute (7) Chronic alcohol dependence, continuous Current Visit: Yes Status: Acute (8) Transaminitis Current Visit: Yes Status: Acute (9) Tobacco abuse Current Visit: Yes Status: Acute Hospital Course: Patient is a 57-year-old female with a known history of cirrhosis, alcohol abuse, and tobacco abuse who presented to the emergency department with hematemesis. On arrival she was found to be slightly tachycardic with a pulse of 106. Blood pressure was normal at 145/93. Initial laboratory analysis showed a normal hemoglobin. Platelets were slightly low at 91. INR elevated at 1.6. Her lactic acid was also a 3.5. AST and total bilirubin were mildly elevated. She continued to have some vomiting in the emergency department. She was placed on a Protonix IV push and on octreotide drip. Arrangements were made for her to be admitted to the ICU. Her hemoglobin then down trended to 10.1. She was seen by GI 09/23 and underwent EGD. She was found have one bleeding per esophageal varices and 3 additional all of which were banded. She had gross amounts of blood in the stomach and an NG tube was placed. She was maintained on Protonix and Sandostatin. She was started on Librium to prevent alcohol withdrawal. In the morning of 09/24 her hemoglobin remained stable. She admits to a history of cirrhosis and had started drinking approximately one year ago. She had been followed at the DC in [place] prior to this however she states she lost her DC benefits and care management here was able to confirm that she qualifies for DC. Her hemoglobin remained stable after her diet was advanced. GI recommended continuing on proton as an outpatient in adding Inderal with her history of varices. She was able to tolerate a regular diet. She will need to follow-up in the GI office in 1-2 weeks, she did have an AFP done here which was 4.6. She was determined stable for discharge home. She will also complete oral iron therapy to help restore her iron levels. She was counseled extensively on stopping drinking alcohol. She was determined to stop and was given an additional 2 day taper of Librium to help with alcohol withdrawal, we discussed extensively that if she denies excessive alcoholic could be deadly due to sedation. She was also given sources for AA. She was determined stable for discharge. [facility] Patient seen and examined at bedside. No additional abdominal pain, no nausea, no vomiting, has not had a bowel movement since admission. Tolerating diet well. She is determined to stay off alcohol. We discussed using Librium for 2 additional days to help with alcohol withdrawal. She is aware that if she combines alcohol with Librium this could be deadly. Vital signs reviewed and stable. General: no distress, appears at stated age Derm: warm, dry Head: atraumatic, normocephalic, symmetric Eyes: EOMI, no lid lag, anicteric sclera Mouth: no lip lesion, mucus membranes moist Cardiovascular: S1S2 reg, no murmur, positive posterior tibial pulse bilateral, Lungs: CTA bilateral, no rhonchi, no rales , no accessory muscle use Abdominal: soft, nontender to palpation, no guarding, no appreciable organomegaly Ext: no gross muscle atrophy, no edema, no contractures Neuro: CN II-XI grossly intact, no focal neuro deficits Psych: Alert, oriented, appropriate affect A total of 45 minutes of time were spent preparing this complex discharge summary . Pertinent Studies: CT abdomen and pelvis-umbilical varices, extensive hypodensity in the liver possibly infiltrative process or cirrhosis. Large umbilical hernia Procedures: AGV-1 esophageal varices with stigmata of prior bleeding, 2 additional esophageal varices BANDED. Patient Condition at Discharge: Serious Plan - Discharge Summary Discharge Rx Participant: Yes New Discharge Prescriptions: New Propranolol [Inderal] 10 mg PO TID #90 tab Pantoprazole [Protonix] 40 mg PO DAILY #30 tablet. chlordiazePOXIDE HCL [Librium] 5 mg PO TID #6 cap Ferrous Sulfate [Feosol] 325 mg PO BID #60 tab Continue Furosemide [Lasix] 40 mg PO DAILY #30 tab Discharge Medication List Ferrous Sulfate [Feosol] 325 mg PO BID #60 tab 09/25/17 [Rx] Furosemide [Lasix] 40 mg PO DAILY #30 tab 09/25/17 [Rx] Pantoprazole [Protonix] 40 mg PO DAILY #30 tablet. 09/25/17 [Rx] Propranolol [Inderal] 10 mg PO TID #90 tab 09/25/17 [Rx] chlordiazePOXIDE HCL [Librium] 5 mg PO TID #6 cap 09/25/17 [Rx] Follow up Appointment(s)/Referral(s): Judy Laguerre PAC [REFERRING] - 10/20/17 8:30 am Patient Instructions/Handouts: Propranolol (By mouth), Chlordiazepoxide (By mouth), Furosemide (By mouth), Pantoprazole (By mouth), Gastrointestinal Bleeding (DC) Activity/Diet/Wound Care/Special Instructions: bland diet activity as tolerated Please follow with the DC clinic in [place] or [place] next week Abstain for alcohol if you drink this with librium you could become sleepy and pass away. Discharge Disposition: HOME SELF-CARE
== END 2017-09-25 16:50 | disposition home or self-care (01) | DRG 432 ==
LOC: EC 00:16 → 6ICU 02:14 → 5MS5E 09-24 18:10
PROVIDERS: ADMIT Family Medicine; ATTEND Family Medicine
PROC: 0D9670Z Drainage of Stomach with Drainage Device, Via Natural or Artificial Opening (ICD-10-PCS; 2017-09-23)
PROC: 06L38CZ Occlusion of Esophageal Vein with Extraluminal Device, Via Natural or Artificial Opening Endoscopic (ICD-10-PCS; principal; 2017-09-23 07:30)
DX: K70.30 Alcoholic cirrhosis of liver without ascites (principal); I85.11 Secondary esophageal varices with bleeding; I95.89 Other hypotension; D68.4 Acquired coagulation factor deficiency; D69.59 Other secondary thrombocytopenia; D62 Acute posthemorrhagic anemia; E87.2 Acidosis; K76.6 Portal hypertension; F10.239 Alcohol dependence with withdrawal, unspecified; K42.9 Umbilical hernia without obstruction or gangrene; I86.8 Varicose veins of other specified sites; Y90.0 Blood alcohol level of less than 20 mg/100 ml; K21.9 Gastro-esophageal reflux disease without esophagitis; F17.200 Nicotine dependence, unspecified, uncomplicated; Z71.6 Tobacco abuse counseling; Z91.19 Patient's noncompliance with other medical treatment and regimen; Z86.010 Personal history of colon polyps; Z79.899 Other long term (current) drug therapy; Z88.0 Allergy status to penicillin
CPT/HCPCS: 36415; 43244; 74176; 80048; 80053; 80074; 80306; 80320; 81001; 82105; 82150; 82550; 82553; 83605; 83690; 83735; 84100; 84484; 85025; 85027; 85610; 85730; 86850; 86900; 86901; 96361; 96365; 96366; 96375; 96376; 99291

== ENCOUNTER 2018-10-03 16:22 | Observation (INO) | payer OTHER ==
[2018-10-03] MEDS ORDERED: LIDOCAINE 1% INJ 10MG/ML (20 ML MDV) SQ ONE (16:41)
--- NOTE | 2018-10-03 17:20 | ED ---
General Adult HPI - General Chief complaint: Skin/Abscess/Foreign Body Stated complaint: lip bleeding Time Seen by Provider: 10/03/18 16:24 Source: patient, EMS, RN notes reviewed Mode of arrival: EMS Limitations: no limitations - History of Present Illness Initial comments: 58-year-old female with past medical history of liver cirrhosis, chronic alcoho lism presents to the emergency department for bleeding lip 2 days. Patient states a small spot on her right lower lip has been bleeding for 2 days and won't stop. Patient states she has applied pressure without relief. Patient thinks this is because she has liver damage and is an alcoholic. Patient denies any trauma to the lip. Patient denies being on any blood thinners. Patient does admit to drinking "a few beers today." States she generally drinks up to 12 beers per day. Denies drinking any liquor. Patient has no other complaints at this time including shortness of breath, chest pain, abdominal pain, nausea or vomiting, headache, or visual changes. - Related Data Previous Rx's Medication Instructions Recorded Pantoprazole [Protonix] 40 mg PO DAILY #30 tablet. 09/25/17 Propranolol [Inderal] 10 mg PO TID #90 tab 09/25/17 RX: Ferrous Sulfate [Feosol] 325 mg PO BID #60 tab 09/25/17 RX: Furosemide [Lasix] 40 mg PO DAILY #30 tab 09/25/17 RX: chlordiazePOXIDE HCL [Librium] 5 mg PO TID #6 cap 09/25/17 Allergies Allergy/AdvReac Type Severity Reaction Status Date / Time Penicillins Allergy Unknown Verified 10/03/18 16:24 Childhood Review of Systems ROS Statement: Those systems with pertinent positive or pertinent negative responses have been documented in the HPI. ROS Other: All systems not noted in ROS Statement are negative. Past Medical History Additional Past Medical History / Comment(s): cirrhosis of the liver History of Any Multi-Drug Resistant Organisms: None Reported Past Surgical History: Tonsillectomy Past Anesthesia/Blood Transfusion Reactions: No Reported Reaction Past Psychological History: No Psychological Hx Reported Smoking Status: Current some day smoker Past Alcohol Use History: Abuse, Daily Past Drug Use History: None Reported General Exam Limitations: no limitations General appearance: alert, in no apparent distress Head exam: Present: atraumatic, normocephalic, normal inspection Eye exam: Present: normal appearance, PERRL, EOMI, scleral icterus (Patient does have a noted icterus to bilateral sclera). Absent: conjunctival injection, periorbital swelling ENT exam: Present: mucous membranes moist, TM's normal bilaterally, normal external ear exam. Absent: normal oropharynx (Patient has a small arterial hemorrhage of the right lower lip, no intraoral trauma) Neck exam: Present: normal inspection, full ROM. Absent: tenderness, meningismus, lymphadenopathy Respiratory exam: Present: normal lung sounds bilaterally. Absent: respiratory distress, wheezes, rales, rhonchi, stridor Cardiovascular Exam: Present: regular rate, normal rhythm, normal heart sounds. Absent: systolic murmur, diastolic murmur, rubs, gallop, clicks GI/Abdominal exam: Present: soft, normal bowel sounds. Absent: distended, tenderness, guarding, rebound, rigid Neurological exam: Present: alert, oriented X3, CN II-XII intact Psychiatric exam: Present: normal affect, normal mood Course Vital Signs 10/03/18 10/03/18 16:24 18:20 Temperature 98 F Pulse Rate 93 86 Respiratory 16 16 Rate Blood Pressure 147/59 131/84 O2 Sat by Pulse 95 98 Oximetry Procedures - Laceration Laceration #1 Consent Obtained: verbal consent Indication: laceration Site: lip Depth: simple, single layer Anesthetic Used: lidocaine 1% Anesthesia Technique: nerve block Pre-repair: irrigated extensively Type of Sutures: nylon Size of Sutures: 5-0 Number of Sutures: 1 Technique: other (figure 8) Patient Tolerated Procedure: well, no complications Additional Comments: small arterial hemorrhage sub millimeter Medical Decision Making - Medical Decision Making 58-year-old female with a past medical history of liver cirrhosis, chronic alcoholism presents to the emergency department for bleeding lip 2 days. On presentation patient is noted to have mild scleral icterus and ecchymosis of the arms. Patient denies any trauma to the lips or arms. This is likely chronic as patient is an alcoholic and likely has coagulopathy secondary to alcoholic cirrhosis. Patient does admit to drinking "a few" beers today. Patient did have a small pulsatile bleed to the right lower lip. Mental block was performed and lip was closed using a figure 8 with 5-0 nylon. This did stop the bleeding. Patient will need stitch removed as it is not absorbable. Patient mildly leukopenic with 3.6 white blood cells which is normal for her. Platelet count 43 which appears to be chronic. INR 1.7 also chronic. Magnesium 1.5, this was replaced with 1 g. Total bilirubin 6.5 which is elevated above patient's baseline of 3. Serum alcohol 341. At this time given patient's intoxication she will be admitted for observation. - Lab Data Result diagrams: 10/03/18 17:00 10/03/18 17:00 Lab Results 10/03/18 10/03/18 10/03/18 Range/Units 17:00 17:00 17:00 WBC 3.6 L (3.8-10.6) k/uL RBC 3.30 L (3.80-5.40) m/uL Hgb 11.4 (11.4-16.0) gm/dL Hct 33.6 L (34.0-46.0) % MCV 101.8 H (80.0-100.0) fL MCH 34.4 (25.0-35.0) pg MCHC 33.8 (31.0-37.0) g/dL RDW 13.5 (11.5-15.5) % Plt Count 43 L (150-450) k/uL Neutrophils % 61 % Lymphocytes % 27 % Monocytes % 7 % Eosinophils % 2 % Basophils % 1 % Neutrophils # 2.2 (1.3-7.7) k/uL Lymphocytes # 1.0 (1.0-4.8) k/uL Monocytes # 0.3 (0-1.0) k/uL Eosinophils # 0.1 (0-0.7) k/uL Basophils # 0.0 (0-0.2) k/uL Manual Slide Review Performed Polychromasia Present Anisocytosis (manual) Present Macrocytosis Slight PT (9.0-12.0) sec INR (<1.2) APTT (22.0-30.0) sec Sodium 141 (137-145) mmol/L Potassium 3.7 (3.5-5.1) mmol/L Chloride 105 (98-107) mmol/L Carbon Dioxide 22 (22-30) mmol/L Anion Gap 14 mmol/L BUN 2 L (7-17) mg/dL Creatinine 0.45 L (0.52-1.04) mg/dL Est GFR (CKD-EPI)AfAm >90 (>60 ml/min/1.73 sqM) Est GFR (CKD-EPI)NonAf >90 (>60 ml/min/1.73 sqM) Glucose 104 H (74-99) mg/dL Calcium 8.1 L (8.4-10.2) mg/dL Magnesium 1.5 L (1.6-2.3) mg/dL Total Bilirubin 6.5 H (0.2-1.3) mg/dL AST 188 H (14-36) U/L ALT 65 H (9-52) U/L Alkaline Phosphatase 109 (38-126) U/L Total Protein 9.1 H (6.3-8.2) g/dL Albumin 3.6 (3.5-5.0) g/dL Amylase 102 (30-110) U/L Lipase 336 H (23-300) U/L Urine Color Urine Appearance (Clear) Urine pH (5.0-8.0) Ur Specific [place] (1.001-1.035) Urine Protein (Negative) Urine Glucose (UA) (Negative) Urine Ketones (Negative) Urine Blood (Negative) Urine Nitrite (Negative) Urine Bilirubin (Negative) Urine Urobilinogen (<2.0) mg/dL Ur Leukocyte Esterase (Negative) Urine RBC (0-5) /hpf Urine WBC (0-5) /hpf Ur Squamous Epith Cells (0-4) /hpf Urine Bacteria (None) /hpf Urine Mucus (None) /hpf Serum Alcohol 341 H* mg/dL 10/03/18 10/03/18 Range/Units 17:00 18:30 WBC (3.8-10.6) k/uL RBC (3.80-5.40) m/uL Hgb (11.4-16.0) gm/dL Hct (34.0-46.0) % MCV (80.0-100.0) fL MCH (25.0-35.0) pg MCHC (31.0-37.0) g/dL RDW (11.5-15.5) % Plt Count (150-450) k/uL Neutrophils % % Lymphocytes % % Monocytes % % Eosinophils % % Basophils % % Neutrophils # (1.3-7.7) k/uL Lymphocytes # (1.0-4.8) k/uL Monocytes # (0-1.0) k/uL Eosinophils # (0-0.7) k/uL Basophils # (0-0.2) k/uL Manual Slide Review Polychromasia Anisocytosis (manual) Macrocytosis PT 17.0 H (9.0-12.0) sec INR 1.7 H (<1.2) APTT 35.9 H (22.0-30.0) sec Sodium (137-145) mmol/L Potassium (3.5-5.1) mmol/L Chloride (98-107) mmol/L Carbon Dioxide (22-30) mmol/L Anion Gap mmol/L BUN (7-17) mg/dL Creatinine (0.52-1.04) mg/dL Est GFR (CKD-EPI)AfAm (>60 ml/min/1.73 sqM) Est GFR (CKD-EPI)NonAf (>60 ml/min/1.73 sqM) Glucose (74-99) mg/dL Calcium (8.4-10.2) mg/dL Magnesium (1.6-2.3) mg/dL Total Bilirubin (0.2-1.3) mg/dL AST (14-36) U/L ALT (9-52) U/L Alkaline Phosphatase (38-126) U/L Total Protein (6.3-8.2) g/dL Albumin (3.5-5.0) g/dL Amylase (30-110) U/L Lipase (23-300) U/L Urine Color Dark Brown Urine Appearance Cloudy H (Clear) Urine pH 6.0 (5.0-8.0) Ur Specific [place] 1.012 (1.001-1.035) Urine Protein 1+ H (Negative) Urine Glucose (UA) Negative (Negative) Urine Ketones Negative (Negative) Urine Blood Moderate H (Negative) Urine Nitrite Negative (Negative) Urine Bilirubin 1+ H (Negative) Urine Urobilinogen 3.0 (<2.0) mg/dL Ur Leukocyte Esterase Negative (Negative) Urine RBC 35 H (0-5) /hpf Urine WBC 3 (0-5) /hpf Ur Squamous Epith Cells 3 (0-4) /hpf Urine Bacteria Rare H (None) /hpf Urine Mucus Many H (None) /hpf Serum Alcohol mg/dL Disposition Clinical Impression: Lip laceration, Alcohol intoxication, Hyperbilirubinemia, Chronic alcoholism Disposition: ADMITTED IP TO THIS HOSP Condition: Fair Is patient prescribed a controlled substance at d/c from ED?: No Referrals: Nonstaff,Physician [Primary Care Provider] - 1-2 days Time of Disposition: 19:36
[2018-10-03 17:27] LABS: Basophils % (A) 1 %; Eosinophils # (A) 0.1 k/uL (0-0.7); Eosinophils % (A) 2 %; HCT 33.6 % (34.0-46.0); HGB 11.4 gm/dL (11.4-16.0); Lymphocytes % (A) 27 %; MCH 34.4 pg (25.0-35.0); MCHC 33.8 g/dL (31.0-37.0); MCV 101.8 fL (80.0-100.0); Macrocytosis Slight; Mean Platelet Volume 9.3; Monocytes # (A) 0.3 k/uL (0-1.0); Monocytes % (A) 7 %; Neutrophils # (A) 2.2 k/uL (1.3-7.7); Neutrophils % (A) 61 %; RDW 13.5 % (11.5-15.5); WBC 3.6 k/uL (3.8-10.6)
[2018-10-03 17:28] LABS: ALT 65 U/L (9-52); AST 188 U/L (14-36); Albumin 3.6 g/dL (3.5-5.0); Alkaline Phosphatase 109 U/L (38-126); Amylase 102 U/L (30-110); Anion Gap 14 mmol/L; Blood Urea Nitrogen 2 mg/dL (7-17); Calcium 8.1 mg/dL (8.4-10.2); Carbon Dioxide 22 mmol/L (22-30); Chloride 105 mmol/L (98-107); Glucose 104 mg/dL (74-99); Lipase 336 U/L (23-300); Potassium 3.7 mmol/L (3.5-5.1); Sodium 141 mmol/L (137-145); Total Bilirubin 6.5 mg/dL (0.2-1.3); Total Protein 9.1 g/dL (6.3-8.2)
[2018-10-03 17:36] LABS: Alcohol 341 mg/dL
[2018-10-03] MEDS ORDERED: LORazepam 2 MG/ML INJ IV PRN ×3 (17:42)
[2018-10-03] MEDS ORDERED: THIAMINE 100 MG/ML 2 ML VIAL IM STA (17:42)
[2018-10-03] MEDS ORDERED: SODIUM CHLORIDE 0.9% 1,000 ML IV STA (17:43)
[2018-10-03 18:02] LABS: Anisocytosis (M) Present; Polychromasia Present
[2018-10-03 18:03] LABS: Platelet Count 43 k/uL (150-450)
[2018-10-03] MEDS ORDERED: MAGNESIUM SULFATE-D5W PMX 1 GM in DEXTROSE/WATER 1 100ML.BAG IVPB ONE (18:24)
[2018-10-03 18:28] LABS: INR 1.7 (<1.2); Partial Thromboplastin Time 35.9 sec (22.0-30.0)
[2018-10-03 19:04] LABS: Appearance,Urine Cloudy (Clear); Bacteria,Urine Rare /hpf; Bilirubin,Urine 1+ (Negative); Blood,Urine Moderate (Negative); Color,Urine Dark Brown; Glucose,Urine (UA) Negative (Negative); Ketones,Urine Negative (Negative); Leukocyte Esterase,Urine Negative (Negative); Mucus,Urine Many /hpf; Nitrite,Urine Negative (Negative); Protein,Urine 1+ (Negative); RBC,Urine 35 /hpf (0-5); Specific Gravity,Urine 1.012 (1.001-1.035); Squamous Epithelial Cell,Urine 3 /hpf (0-4); WBC,Urine 3 /hpf (0-5)
[2018-10-03] MEDS ORDERED: ONDANSETRON 4 MG/2 ML VIAL IVP PRN (19:26)
[2018-10-03] MEDS ORDERED: NALOXONE 0.4 MG/ML 1 ML VIAL IV PRN (19:26)
[2018-10-03] MEDS ORDERED: IBUPROFEN 400 MG TAB PO PRN (19:26)
[2018-10-03] MEDS: SODIUM CHLORIDE 0.9% 1,000 ML IV SCH (21:03)
--- NOTE | 2018-10-03 21:17 | P.HPIM ---
History of Present Illness H&P Date: 10/03/18 The patient is a 58 yo F with a PMH of cirrhosis, esophageal varices (s/p banding 09/2017), continued EtOH abuse, and tobacco abuse presented to the ED for 2 days of bleeding from her lower lip. The patient notes that the bleeding started spotnaneously and she applied pressure to it with no avail. She denied any falls or trauma to her lip though did note she often has falls and has bruisees on her arms. She notes that she often gets inebriated and wakes up with bruises. She reports drinking 10-12 beers daily and notes having "a couple of beers" today. She otherwise denied chest pain, SOB, nausea, vomiting, abdominal pain, dizziness, headche, cough, fever, or chills. The patient reports that she has been drinking "on and off" since her previous admission 1 year ago. She underwent an extensive evaluation in the ED w/ EtOH level 341; INR 1.7 (previously 1.6 on 09/2017); platelets 43 (prev 56), T Bilirubin 6.5 (prev 3.3); AST 188, ALT 65; WBC 3.6 (prev 3.6); w/ total protein 9.1. Review of Systems Pertinent positives and negatives as discussed in HPI, a complete review of systems was performed and all other systems are negative. Past Medical History Additional Past Medical History / Comment(s): cirrhosis of the liver History of Any Multi-Drug Resistant Organisms: None Reported Past Surgical History: Tonsillectomy Past Anesthesia/Blood Transfusion Reactions: No Reported Reaction Past Psychological History: No Psychological Hx Reported Smoking Status: Current some day smoker Past Alcohol Use History: Abuse, Daily Past Drug Use History: None Reported Medications and Allergies Home Medications Medication Instructions Recorded Confirmed Type No Known Home Medications 10/03/18 10/03/18 History Allergies Allergy/AdvReac Type Severity Reaction Status Date / Time Penicillins Allergy Unknown Verified 10/03/18 20:05 Childhood Physical Exam Vitals: Vital Signs Temp Pulse Resp BP Pulse Ox 10/03/18 18:20 86 16 131/84 98 10/03/18 16:24 98 F 93 16 147/59 95 Intake and Output 10/03/18 10/03/18 10/03/18 06:59 14:59 22:59 Other: Weight 61.235 kg General: non toxic, disheveled F, appears older than stated age, normal weight Derm: no unusual rashes/lesions, large ecchymotic lesions over both arms w/ subcutaneous nodules, warm, dry Head: atraumatic, normocephalic, symmetric Eyes: EOMI, no lid lag, scleral icterus present, pupils equal round reactive to light ENT: Nose and ears atraumatic, no thrush, no pharyngeal erythema, Neck: No thyromegaly, no cervical lymphadenopathy, trachea midline, supple Mouth: bottom lip suture in place, no active bleeding, mucus membranes moist Cardiovascular: S1S2 reg, no murmur, positive posterior tibial pulse bilateral, no edema, capillary refill less than 2 seconds Lungs: CTA bilateral, no rhonchi, no rales , no accessory muscle use Abdominal: soft, nontender to palpation, no guarding, umbilical hernia completely reducible, non-tender, no appreciable organomegaly, normal bowel sounds Ext: no gross muscle atrophy, muscle strength 5 out of 5 in all 4 extremities grossly, no contractures Neuro: CN II-XI grossly intact, light touch intact all 4 extremities, finger to nose within normal limits, Psych: Alert, oriented, appropriate affect Results CBC & Chem 7: 10/03/18 17:00 10/03/18 17:00 Labs: Abnormal Lab Results - Last 24 Hours (Table) 10/03/18 10/03/18 10/03/18 Range/Units 17:00 17:00 17:00 WBC 3.6 L (3.8-10.6) k/uL RBC 3.30 L (3.80-5.40) m/uL Hct 33.6 L (34.0-46.0) % MCV 101.8 H (80.0-100.0) fL Plt Count 43 L (150-450) k/uL PT (9.0-12.0) sec INR (<1.2) APTT (22.0-30.0) sec BUN 2 L (7-17) mg/dL Creatinine 0.45 L (0.52-1.04) mg/dL Glucose 104 H (74-99) mg/dL Calcium 8.1 L (8.4-10.2) mg/dL Magnesium 1.5 L (1.6-2.3) mg/dL Total Bilirubin 6.5 H (0.2-1.3) mg/dL AST 188 H (14-36) U/L ALT 65 H (9-52) U/L Total Protein 9.1 H (6.3-8.2) g/dL Lipase 336 H (23-300) U/L Urine Appearance (Clear) Urine Protein (Negative) Urine Blood (Negative) Urine Bilirubin (Negative) Urine RBC (0-5) /hpf Urine Bacteria (None) /hpf Urine Mucus (None) /hpf Serum Alcohol 341 H* mg/dL 10/03/18 10/03/18 Range/Units 17:00 18:30 WBC (3.8-10.6) k/uL RBC (3.80-5.40) m/uL Hct (34.0-46.0) % MCV (80.0-100.0) fL Plt Count (150-450) k/uL PT 17.0 H (9.0-12.0) sec INR 1.7 H (<1.2) APTT 35.9 H (22.0-30.0) sec BUN (7-17) mg/dL Creatinine (0.52-1.04) mg/dL Glucose (74-99) mg/dL Calcium (8.4-10.2) mg/dL Magnesium (1.6-2.3) mg/dL Total Bilirubin (0.2-1.3) mg/dL AST (14-36) U/L ALT (9-52) U/L Total Protein (6.3-8.2) g/dL Lipase (23-300) U/L Urine Appearance Cloudy H (Clear) Urine Protein 1+ H (Negative) Urine Blood Moderate H (Negative) Urine Bilirubin 1+ H (Negative) Urine RBC 35 H (0-5) /hpf Urine Bacteria Rare H (None) /hpf Urine Mucus Many H (None) /hpf Serum Alcohol mg/dL Assessment and Plan Plan: Acute alcohol intoxication, impending withdrawal -[facility] protocol -Thiamine, Folate, MV -Seizure, aspiration, fall precautions Lip bleeding, s/p 1 suture -Bleeding stopped EtOH abuse and Cirrhosis -Advised patient on importance of follow-up w/ GI as an outpatient -Discussed with patient in detail regarding importance of alcohol cessation Thrombocytopenia, elevated INR, elevated T Bili -Secondary to cirrhosis -Will give Vit K for coagulopathy Umbilical hernia -Will need outpatient Surgery follow-up DVT//GI prophylaxis -IPCDs -Protonix The patient is admitted with an anticipated less than 2 midnight stay for evaluation of acute alcohol intoxication. CODE STATUS:Full Code Discussed with: Patient Anticipated discharge date: 10/04/[address]: Home A total of 35 minutes was spent on the care of this complex patient more than 50% of the time was spent in counseling and care coordination.
[2018-10-03] MEDS ORDERED: PHYTONADIONE ORAL 5 MG/5 ML ORAL.SYRG PO ONE (21:30)
--- NOTE | 2018-10-03 21:43 | XR ---
EXAMINATION TYPE: XR chest 1V portable DATE OF EXAM: 10/03/2018 COMPARISON: NONE HISTORY: Weakness TECHNIQUE: Single frontal view of the chest is obtained. FINDINGS: There is no heart failure. There is mild subsegmental atelectasis at the lung bases. There is no pleural effusion. Heart size is normal. IMPRESSION: Mild subsegmental atelectasis.
[2018-10-03] MEDS: MAGNESIUM SULFATE-D5W PMX 1 GM in DEXTROSE/WATER 1 100ML.BAG IVPB SCH ×2 (21:56→23:12)
[2018-10-03] MEDS ORDERED: CALCIUM CARBONATE 500 MG CHEWABLE PO PRN (23:49)
[2018-10-04] MEDS: SODIUM CHLORIDE 0.9% 1,000 ML IV SCH (05:30)
[2018-10-04 07:16] LABS: INR 1.9 (<1.2); Prothrombin Time 18.7 sec (9.0-12.0)
[2018-10-04 07:24] LABS: ALT 52 U/L (9-52); AST 144 U/L (14-36); Albumin 2.6 g/dL (3.5-5.0); Alkaline Phosphatase 114 U/L (38-126); Anion Gap 6 mmol/L; Blood Urea Nitrogen 3 mg/dL (7-17); Calcium 6.8 mg/dL (8.4-10.2); Carbon Dioxide 24 mmol/L (22-30); Chloride 109 mmol/L (98-107); Glucose 86 mg/dL (74-99); MCH 35.8 pg (25.0-35.0); MCV 102.3 fL (80.0-100.0); Macrocytosis Slight; Mean Platelet Volume 10.2; Potassium 3.6 mmol/L (3.5-5.1); RBC 2.54 m/uL (3.80-5.40); RDW 13.3 % (11.5-15.5); Sodium 139 mmol/L (137-145); Total Bilirubin 4.6 mg/dL (0.2-1.3); Total Protein 7.1 g/dL (6.3-8.2); WBC 1.6 k/uL (3.8-10.6)
[2018-10-04] MEDS ORDERED: PANTOPRAZOLE 40 MG TABLET PO SCH (07:30)
[2018-10-04 07:35] LABS: HGB 9.1 gm/dL (11.4-16.0); Platelet Count 25 k/uL (150-450)
[2018-10-04 07:49] VITALS: BP 108/67; PULSE 84; RESP 18; TEMP 98.9
[2018-10-04] MEDS ORDERED: FOLIC ACID 1 MG TAB PO SCH (12:00)
[2018-10-04] MEDS ORDERED: THIAMINE 100 MG TAB PO SCH (12:00)
[2018-10-04] MEDS ORDERED: MULTIVITAMINS, THERA 1 EACH TAB PO SCH (12:00)
--- NOTE | 2018-10-05 07:26 | P.DS ---
Providers Date of admission: 10/03/18 19:25 Expected date of discharge: 10/04/18 Attending physician: Nena Dwyer MD Primary care physician: Physician Nonstaff Hospital Course: 58 yo F with a PMH of cirrhosis, esophageal varices (s/p banding 09/2017), continued EtOH abuse, and tobacco abuse presented to the ED for 2 days of bleeding from her lower lip. The patient notes that the bleeding started spotnaneously and she applied pressure to it with no avail. She denied any falls or trauma to her lip though did note she often has falls and has bruisees on her arms. She notes that she often gets inebriated and wakes up with bruises. She r eports drinking 10-12 beers daily and notes having "a couple of beers" today. She otherwise denied chest pain, SOB, nausea, vomiting, abdominal pain, dizziness, headche, cough, fever, or chills. The patient reports that she has been drinking "on and off" since her previous admission 1 year ago. She underwent an extensive evaluation in the ED w/ EtOH level 341; INR 1.7 (previously 1.6 on 09/2017); platelets 43 (prev 56), T Bilirubin 6.5 (prev 3.3); AST 188, ALT 65; WBC 3.6 (prev 3.6); w/ total protein 9.1. With regard to her alcohol withdrawal, patient was placed on CIWA protocol. She was started on thiamine, folate acid and multivitamin. She was placed on seizure, aspiration and fall precautions. Patient was noted to have abnormal lab work including anemia with hemoglobin of 9.1, INR 1.9, total bilirubin of 4.6, AST of 144. These abnormal blood results were thought to be secondary to chronic alcohol abuse and possible cirrhosis. Her sister and her sister's was present at bedside to discuss the patient's fate. Patient was seen and examined. No acute events overnight. Patient appears preoccupied with her lip that currently has one stitch in it. Patient states that she is motivated to quit drinking, agreeable for inpatient rehab. As per discussion with sister, she reports that the patient is likely not to quit drinking. Patient denies any nausea or vomiting. No fever or chills. She denies any chest pain, shortness of breath or palpitations. General: [non toxic], [no distress], [appears at stated age] Derm: [warm], [dry] Head: [atraumatic], [normocephalic], [spider angiomas] Eyes: [EOMI], [no lid lag], [jaundiced sclera] Mouth: [no lip lesion], [mucus membranes moist] Cardiovascular: [S1S2 reg], [tachycardia], [positive DP pulse bilateral], Lungs: [CTA bilateral], [no rhonchi, no rales] , [no accessory muscle use] Abdominal: [soft], [ nontender to palpation], [no guarding], [no appreciable organomegaly] Ext: [no gross muscle atrophy], [no edema], [no contractures] Neuro: [no focal neuro deficits] Psych: [Alert], [oriented], [appropriate affect] Acute alcohol intoxication Lip bleeding Elevated liver enzymes Anemia Thrombocytopenia Blood alcohol 341 yesterday around 5 PM. Patient is alert and oriented 3 at this time. CIWA protocol. Ativan as needed for alcohol withdrawal. Continue multivitamin, folic acid and thiamine. Zofran as needed for nausea or vomiting. Continue Protonix. Social work consulted, to give resources for inpatient rehab [facility] on discharge. No further bleeding since stitches. Follow-up PCP to remove. Elevated total bilirubin with AST and ALT. This is an obstructive picture likely secondary to cirrhosis. Will need alcohol cessation. Hemoglobin decreased from 11.4 to 9.1. This is likely secondary to dilution as all cell lines have decreased on day 2. Repeat CBC in the outpatient setting. Platelet count 25. Likely secondary to alcohol abuse. Daily CBC. Patient to be discharged in the hands of her sister. I advised that she should probably continue drinking until her inpatient alcohol detox appointment at [facility] is set up. I will discharge her with 3 days of Ativan to control withdrawal symptoms. Patient and sister verbalize understanding of the plan. Pertinent Studies: Chest x-ray Patient Condition at Discharge: Fair Plan - Discharge Summary Discharge Rx Participant: Yes New Discharge Prescriptions: No Action No Known Home Medications Discharge Medication List No Known Home Medications 10/05/18 [History] Follow up Appointment(s)/Referral(s): Nonstaff,Physician [Primary Care Provider] - 1-2 days Ambulatory/Diagnostic Orders: Complete Blood Count w/diff [LAB.AMB] Time Frame: 1 Day, Location: None Selected Comprehensive Metabolic Panel [LAB.AMB] Time Frame: 1 Day, Location: None Selected Activity/Diet/Wound Care/Special Instructions: Diet: Regular Follow-up with PCP within 1-2 days of discharge. Please obtain CBC and CMP within 1 day of discharge. Follow-up results with PCP. Please take all medications as advised. Please try to abstain from alcohol. Please get in contact with [facility] to enroll in inpatient alcohol detox program. Discharge Disposition: HOME SELF-CARE
== END 2018-10-04 14:26 | disposition home or self-care (01) ==
LOC: EC 16:22 → 1SOBS 19:25
PROVIDERS: ADMIT Internal Medicine; ATTEND Internal Medicine
DX: F10.229 Alcohol dependence with intoxication, unspecified (principal); Y90.8 Blood alcohol level of 240 mg/100 ml or more; S01.511A Laceration without foreign body of lip, initial encounter; D69.59 Other secondary thrombocytopenia; K42.9 Umbilical hernia without obstruction or gangrene; D69.6 Thrombocytopenia, unspecified; D72.819 Decreased white blood cell count, unspecified; F10.239 Alcohol dependence with withdrawal, unspecified; F17.200 Nicotine dependence, unspecified, uncomplicated
CPT/HCPCS: 12011; 96375; 96376; 96365; 96372; 99284; 36415; 80053 ×2; 82150; 83690; 83735 ×2; 85025; 85027; 85610 ×2; 85730; 81001; 80320; 71045; G0378 ×2; J2060 ×2; J3411; J2001; J3475; 99285

== ENCOUNTER 2018-10-05 06:45 | Inpatient (IN) | payer OTHER ==
[2018-10-05] MEDS ORDERED: SODIUM CHLORIDE 0.9% 1,000 ML IV STA (07:35)
[2018-10-05 07:55] LABS: Basophils % (A) 1 %; Eosinophils % (A) 2 %; HCT 27.1 % (34.0-46.0); HGB 9.5 gm/dL (11.4-16.0); Lymphocytes # (A) 0.3 k/uL (1.0-4.8); Lymphocytes % (A) 16 %; MCH 35.8 pg (25.0-35.0); MCV 102.3 fL (80.0-100.0); Macrocytosis Slight; Mean Platelet Volume 9.9; Monocytes # (A) 0.1 k/uL (0-1.0); Monocytes % (A) 7 %; Neutrophils # (A) 1.3 k/uL (1.3-7.7); Neutrophils % (A) 72 %; RBC 2.65 m/uL (3.80-5.40); RDW 13.9 % (11.5-15.5); WBC 1.8 k/uL (3.8-10.6)
[2018-10-05 07:59] LABS: Platelet Count 27 k/uL (150-450)
[2018-10-05 08:04] LABS: ALT 47 U/L (9-52); AST 131 U/L (14-36); Albumin 2.9 g/dL (3.5-5.0); Alkaline Phosphatase 98 U/L (38-126); Amylase 77 U/L (30-110); Anion Gap 8 mmol/L; Blood Urea Nitrogen 5 mg/dL (7-17); Carbon Dioxide 22 mmol/L (22-30); Chloride 104 mmol/L (98-107); Glucose 91 mg/dL (74-99); Lipase 212 U/L (23-300); Potassium 3.5 mmol/L (3.5-5.1); Sodium 134 mmol/L (137-145); Total Bilirubin 8.9 mg/dL (0.2-1.3); Total Protein 7.6 g/dL (6.3-8.2)
[2018-10-05 08:09] LABS: INR 1.9 (<1.2); Prothrombin Time 18.8 sec (9.0-12.0)
[2018-10-05 08:46] LABS: Appearance,Urine Cloudy (Clear); Bilirubin,Urine 1+ (Negative); Blood,Urine Large (Negative); Color,Urine Dark Brown; Glucose,Urine (UA) Negative (Negative); Ketones,Urine Trace (Negative); Leukocyte Esterase,Urine Small (Negative); Mucus,Urine Rare /hpf; Nitrite,Urine Negative (Negative); PH, Urine 7.5 (5.0-8.0); Protein,Urine 1+ (Negative); RBC,Urine >182 /hpf (0-5); Specific Gravity,Urine 1.014 (1.001-1.035); Squamous Epithelial Cell,Urine 1 /hpf (0-4)
--- NOTE | 2018-10-05 10:17 | ED ---
General Adult HPI - General Chief complaint: Nausea/Vomiting/Diarrhea Stated complaint: vomiting Time Seen by Provider: 10/05/18 07:07 Source: patient, EMS, RN notes reviewed Mode of arrival: EMS - History of Present Illness Initial comments: Patient 58-year-old female presented to the emergency room today with a chief complaint of nausea vomiting. Patient does admit to being alcoholic. She states she was recently admitted to the hospital discharged home yesterday. She states she did take medication that was given to her but she was also drinking alcohol. She states that she became nauseated and had episodes of vomiting. Patient does admit that he must give her medications feeling much better at this time. She has no complaints currently. Patient states that she is trying to get into a detox program. Patient denies any recent fever, chills, shortness of breath, chest pain, headaches or visual changes, or any other complaints. - Related Data Home Medications Medication Instructions Recorded Confirmed No Known Home Medications 10/05/18 10/05/18 Allergies Allergy/AdvReac Type Severity Reaction Status Date / Time Penicillins Allergy Unknown Verified 10/05/18 07:19 Childhood Review of Systems ROS Statement: Those systems with pertinent positive or pertinent negative responses have been documented in the HPI. ROS Other: All systems not noted in ROS Statement are negative. Past Medical History Additional Past Medical History / Comment(s): cirrhosis of the liver History of Any Multi-Drug Resistant Organisms: None Reported Past Surgical History: Tonsillectomy Past Anesthesia/Blood Transfusion Reactions: No Reported Reaction Past Psychological History: No Psychological Hx Reported Smoking Status: Current some day smoker Past Alcohol Use History: Abuse, Daily Past Drug Use History: None Reported - Past Family History Father Family Medical History: No Reported History Mother Family Medical History: No Reported History General Exam - General Exam Comments Initial Comments: General: The patient is awake and alert, in no distress, and does not appear acutely ill. Eye: Pupils are equal, round and reactive to light, extra-ocular movements are intact. No nystagmus. There is normal conjunctiva bilaterally. No signs of icterus. Ears, nose, mouth and throat: There are moist mucous membranes and no oral lesions. Neck: The neck is supple Cardiovascular: There is a regular rate and rhythm. No murmur, rub or gallop is appreciated. Respiratory: Lungs are clear to auscultation, respirations are non-labored, breath sounds are equal. No wheezes, stridor, rales, or rhonchi. Gastrointestinal: Soft nontender. Musculoskeletal: Normal ROM, no tenderness. Neurological: A&O x 3. CN II-XII intact, There are no obvious motor or sensory deficits. Coordination appears grossly intact. Speech is normal. Skin: Skin is warm and dry and no rashes or lesions are noted. Psychiatric: Cooperative, appropriate mood & affect, normal judgment. Course Vital Signs 10/05/18 10/05/18 10/05/18 06:49 07:46 08:44 Temperature 98.4 F 98.7 F Pulse Rate 86 80 80 Respiratory 16 18 18 Rate Blood Pressure 119/63 130/78 114/78 O2 Sat by Pulse 97 97 100 Oximetry 10/05/18 10/05/18 10/05/18 09:51 10:45 12:33 Temperature Pulse Rate 90 80 92 Respiratory 18 18 18 Rate Blood Pressure 126/78 130/76 131/70 O2 Sat by Pulse 100 100 100 Oximetry 10/05/18 17:05 Temperature Pulse Rate 91 Respiratory 18 Rate Blood Pressure 130/70 O2 Sat by Pulse 97 Oximetry Medical Decision Making - Medical Decision Making Patient's labs been reviewed and shows similar findings to previous labs. Patient is a daily drinker. Patient has been a symptomatically in the emergency room been resting comfortably. I did discuss following up for detox program and using medication for withdrawal symptoms with patient. She was agreeable to this. Family members were not present at bedside at the time. Family members have come back to the room stating that they do not feel comfortable going home. States concerned as she's been very shaky difficult time with ambulation earlier. States that she's had diarrhea and nausea and vomiting. Family members did petition the patient be seen by psych services. Psych services inpatient emergency room as clear the patient as she is not suicidal or homicidal. Case discussed with attending physician. He did discuss case with Dr. Lewis who will come to evaluate agent. He does recommend to admit the patient. Patient will be admitted to his service. Patient will be placed on a CIWA scale. - Lab Data Result diagrams: 10/05/18 07:00 10/05/18 07:00 Lab Results 10/05/18 10/05/18 10/05/18 Range/Units 07:00 07:00 07:00 WBC 1.8 L (3.8-10.6) k/uL RBC 2.65 L (3.80-5.40) m/uL Hgb 9.5 L (11.4-16.0) gm/dL Hct 27.1 L (34.0-46.0) % MCV 102.3 H (80.0-100.0) fL MCH 35.8 H (25.0-35.0) pg MCHC 35.0 (31.0-37.0) g/dL RDW 13.9 (11.5-15.5) % Plt Count 27 L (150-450) k/uL Neutrophils % 72 % Lymphocytes % 16 % Monocytes % 7 % Eosinophils % 2 % Basophils % 1 % Neutrophils # 1.3 (1.3-7.7) k/uL Lymphocytes # 0.3 L (1.0-4.8) k/uL Monocytes # 0.1 (0-1.0) k/uL Eosinophils # 0.0 (0-0.7) k/uL Basophils # 0.0 (0-0.2) k/uL Macrocytosis Slight PT 18.8 H (9.0-12.0) sec INR 1.9 H (<1.2) APTT 36.0 H (22.0-30.0) sec Sodium 134 L (137-145) mmol/L Potassium 3.5 (3.5-5.1) mmol/L Chloride 104 (98-107) mmol/L Carbon Dioxide 22 (22-30) mmol/L Anion Gap 8 mmol/L BUN 5 L (7-17) mg/dL Creatinine 0.40 L (0.52-1.04) mg/dL Est GFR (CKD-EPI)AfAm >90 (>60 ml/min/1.73 sqM) Est GFR (CKD-EPI)NonAf >90 (>60 ml/min/1.73 sqM) Glucose 91 (74-99) mg/dL Calcium 8.0 L (8.4-10.2) mg/dL Total Bilirubin 8.9 H (0.2-1.3) mg/dL AST 131 H (14-36) U/L ALT 47 (9-52) U/L Alkaline Phosphatase 98 (38-126) U/L Total Protein 7.6 (6.3-8.2) g/dL Albumin 2.9 L (3.5-5.0) g/dL Amylase 77 (30-110) U/L Lipase 212 (23-300) U/L Urine Color Urine Appearance (Clear) Urine pH (5.0-8.0) Ur Specific [place] (1.001-1.035) Urine Protein (Negative) Urine Glucose (UA) (Negative) Urine Ketones (Negative) Urine Blood (Negative) Urine Nitrite (Negative) Urine Bilirubin (Negative) Urine Urobilinogen (<2.0) mg/dL Ur Leukocyte Esterase (Negative) Urine RBC (0-5) /hpf Ur Squamous Epith Cells (0-4) /hpf Urine Mucus (None) /hpf Urine Opiates Screen (NotDetected) Ur Oxycodone Screen (NotDetected) Urine Methadone Screen (NotDetected) Ur Propoxyphene Screen (NotDetected) Ur Barbiturates Screen (NotDetected) U Tricyclic Antidepress (NotDetected) Ur Phencyclidine Scrn (NotDetected) Ur Amphetamines Screen (NotDetected) U Methamphetamines Scrn (NotDetected) U Benzodiazepines Scrn (NotDetected) Urine Cocaine Screen (NotDetected) U Marijuana (THC) Screen (NotDetected) 10/05/18 10/05/18 Range/Units 08:12 08:12 WBC (3.8-10.6) k/uL RBC (3.80-5.40) m/uL Hgb (11.4-16.0) gm/dL Hct (34.0-46.0) % MCV (80.0-100.0) fL MCH (25.0-35.0) pg MCHC (31.0-37.0) g/dL RDW (11.5-15.5) % Plt Count (150-450) k/uL Neutrophils % % Lymphocytes % % Monocytes % % Eosinophils % % Basophils % % Neutrophils # (1.3-7.7) k/uL Lymphocytes # (1.0-4.8) k/uL Monocytes # (0-1.0) k/uL Eosinophils # (0-0.7) k/uL Basophils # (0-0.2) k/uL Macrocytosis PT (9.0-12.0) sec INR (<1.2) APTT (22.0-30.0) sec Sodium (137-145) mmol/L Potassium (3.5-5.1) mmol/L Chloride (98-107) mmol/L Carbon Dioxide (22-30) mmol/L Anion Gap mmol/L BUN (7-17) mg/dL Creatinine (0.52-1.04) mg/dL Est GFR (CKD-EPI)AfAm (>60 ml/min/1.73 sqM) Est GFR (CKD-EPI)NonAf (>60 ml/min/1.73 sqM) Glucose (74-99) mg/dL Calcium (8.4-10.2) mg/dL Total Bilirubin (0.2-1.3) mg/dL AST (14-36) U/L ALT (9-52) U/L Alkaline Phosphatase (38-126) U/L Total Protein (6.3-8.2) g/dL Albumin (3.5-5.0) g/dL Amylase (30-110) U/L Lipase (23-300) U/L Urine Color Dark Brown Urine Appearance Cloudy H (Clear) Urine pH 7.5 (5.0-8.0) Ur Specific [place] 1.014 (1.001-1.035) Urine Protein 1+ H (Negative) Urine Glucose (UA) Negative (Negative) Urine Ketones Trace H (Negative) Urine Blood Large H (Negative) Urine Nitrite Negative (Negative) Urine Bilirubin 1+ H (Negative) Urine Urobilinogen 2.0 (<2.0) mg/dL Ur Leukocyte Esterase Small H (Negative) Urine RBC >182 H (0-5) /hpf Ur Squamous Epith Cells 1 (0-4) /hpf Urine Mucus Rare H (None) /hpf Urine Opiates Screen Not Detected (NotDetected) Ur Oxycodone Screen Not Detected (NotDetected) Urine Methadone Screen Not Detected (NotDetected) Ur Propoxyphene Screen Not Detected (NotDetected) Ur Barbiturates Screen Not Detected (NotDetected) U Tricyclic Antidepress Not Detected (NotDetected) Ur Phencyclidine Scrn Not Detected (NotDetected) Ur Amphetamines Screen Not Detected (NotDetected) U Methamphetamines Scrn Not Detected (NotDetected) U Benzodiazepines Scrn Detected H (NotDetected) Urine Cocaine Screen Not Detected (NotDetected) U Marijuana (THC) Screen Not Detected (NotDetected) Disposition Clinical Impression: Alcohol withdrawal Disposition: ADMITTED IP TO THIS [facility] Condition: Stable Is patient prescribed a controlled substance at d/c from ED?: No Referrals: Nonstaff,Physician [REFERRING] - 1-2 days Time of Disposition: 17:14
[2018-10-05] MEDS ORDERED: ONDANSETRON ODT 4 MG TAB PO STA ×2 (12:53→16:53)
[2018-10-05 15:13] LABS: Amphetamine Screen,Urine Not Detected (NotDetected); Barbiturate Screen,Urine Not Detected (NotDetected); Benzodiazepines Screen,Urine Detected (NotDetected); Cocaine Screen,Urine Not Detected (NotDetected); Methadone Screen, Urine Not Detected (NotDetected); Opiate Screen,Urine Not Detected (NotDetected); Oxycodone Screen, Urine Not Detected (NotDetected); Phencyclidine Screen,Urine Not Detected (NotDetected); Tricyclic Antidepressant,Urine Not Detected (NotDetected); Urn Cannabinoid Scrn Not Detected (NotDetected)
[2018-10-05] MEDS ORDERED: LORazepam 2 MG/ML INJ IV PRN (17:13)
[2018-10-05] MEDS ORDERED: THIAMINE 100 MG/ML 2 ML VIAL IM STA (17:13)
[2018-10-05] MEDS ORDERED: MORPHINE SULFATE 4 MG/ML SYRINGE IV PRN (17:14)
[2018-10-05] MEDS ORDERED: SODIUM CHLORIDE 0.9% 1,000 ML IV ONE (17:14)
[2018-10-05] MEDS ORDERED: NALOXONE 0.4 MG/ML 1 ML VIAL IV PRN (17:14)
[2018-10-05] MEDS: LORazepam 2 MG/ML INJ IV PRN ×2 (17:41→19:55)
[2018-10-05] MEDS ORDERED: PHYTONADIONE 10 MG in SODIUM CHLORIDE 0.9% 50 ML IVPB STA (18:47)
--- NOTE | 2018-10-05 18:49 | P.HPIM ---
History of Present Illness 58-year-old female came in the emergency department with comments of nausea vomiting bilious vomitus with epigastric abdominal discomfort. Patient upon exam has a tremor probably because of alcohol withdrawal patient that last drink was yesterday morning she states it's couple beers probably more than that. Patient was diagnosed with alcoholic cirrhosis had variceal bleed in the past with banding to the valve disease. Was able to review the previous had a PSA patient was discharged couple days ago on of this month after she was treated for alcohol withdrawals with extensive counseling appropriate follow ups, doesn't appear that patient didn't ever go to [facility]. I had excessive discussion the patient in counseling and patient is willing to quit alcohol patient came in with bleeding in the lower lip and patient was found to be neuropathic with elevated INR was treated with vitamin K at that time. Patient was diagnosed with cirrhosis does have peripheral signs of cirrhosis including palmar erythema on medical hernia and spider nevi. Patient denied any fever chills dysuria. Patient is quite unstable [facility] physical therapy and occupational therapy consultation. Patient appears to be quite a bit confused probably because of all call withdrawal rather than Wernicke's encephalopathy patient does not have any truncal ataxia does not appear to have ophthalmoplegia and exam. Review of Systems REVIEW OF SYSTEMS: CONSTITUTIONAL: She does have generalized weakness HEENT: No recent visual problems or hearing problems. Denied any sore throat. CARDIOVASCULAR: No chest pain, orthopnea, PND, no palpitations, no syncope. PULMONARY: No shortness of breath, no cough, no hemoptysis. GASTROINTESTINAL: As mentioned in HPI NEUROLOGICAL: No headaches, no weakness, no numbness. HEMATOLOGICAL: Denies any bleeding or petechiae. GENITOURINARY: Denies any burning micturition, frequency, or urgency. MUSCULOSKELETAL/RHEUMATOLOGICAL: Denies any joint pain, swelling, or any muscle pain. ENDOCRINE: Denies any polyuria or polydipsia. The rest of the 14-point review of systems is negative. Past Medical History Additional Past Medical History / Comment(s): cirrhosis of the liver History of Any Multi-Drug Resistant Organisms: None Reported Past Surgical History: Tonsillectomy Past Anesthesia/Blood Transfusion Reactions: No Reported Reaction Past Psychological History: No Psychological Hx Reported Smoking Status: Current some day smoker Past Alcohol Use History: Abuse, Daily Past Drug Use History: None Reported - Past Family History Father Family Medical History: No Reported History Mother Family Medical History: No Reported History Medications and Allergies Home Medications Medication Instructions Recorded Confirmed Type No Known Home Medications 10/05/18 10/05/18 History Allergies Allergy/AdvReac Type Severity Reaction Status Date / Time Penicillins Allergy Unknown Verified 10/05/18 07:19 Childhood Physical Exam Vitals: Vital Signs Temp Pulse Resp BP Pulse Ox 10/05/18 17:05 98.7 F 91 18 130/70 97 10/05/18 12:33 92 18 131/70 100 10/05/18 10:45 80 18 130/76 100 10/05/18 09:51 90 18 126/78 100 10/05/18 08:44 98.7 F 80 18 114/78 100 10/05/18 07:46 80 18 130/78 97 10/05/18 06:49 98.4 F 86 16 119/63 97 Intake and Output 10/05/18 10/05/18 10/05/18 06:59 14:59 22:59 Other: Weight 61.235 kg PHYSICAL EXAMINATION: GENERAL: The patient is alert and oriented x3, not in any acute distress. Well developed, well nourished. Definitely bit confused because of alcohol withdrawal HEENT: Pupils are round and equally reacting to light. EOMI. No scleral icterus. No conjunctival pallor. Normocephalic, atraumatic. No pharyngeal erythema. No thyromegaly. CARDIOVASCULAR: S1 and S2 present. No murmurs, rubs, or gallops. PULMONARY: Chest is clear to auscultation, no wheezing or crackles. ABDOMEN: Soft, nontender, nondistended, normoactive bowel sounds. No palpable organomegaly. Patient does not appear to have any ascites but does have peripheral signs of cirrhosis as mentioned in the HPI MUSCULOSKELETAL: No joint swelling or deformity. EXTREMITIES: No cyanosis, clubbing, or pedal edema. NEUROLOGICAL: Gross neurological examination did not reveal any focal deficits. Gait is unstable because of alcohol withdrawal the knees no ophthalmoplegia or truncal ataxia SKIN: No rashes. Results CBC & Chem 7: 10/05/18 07:00 10/05/18 07:00 Labs: Abnormal Lab Results - Last 24 Hours (Table) 10/05/18 10/05/18 10/05/18 Range/Units 07:00 07:00 07:00 WBC 1.8 L (3.8-10.6) k/uL RBC 2.65 L (3.80-5.40) m/uL Hgb 9.5 L (11.4-16.0) gm/dL Hct 27.1 L (34.0-46.0) % MCV 102.3 H (80.0-100.0) fL MCH 35.8 H (25.0-35.0) pg Plt Count 27 L (150-450) k/uL Lymphocytes # 0.3 L (1.0-4.8) k/uL PT 18.8 H (9.0-12.0) sec INR 1.9 H (<1.2) APTT 36.0 H (22.0-30.0) sec Sodium 134 L (137-145) mmol/L BUN 5 L (7-17) mg/dL Creatinine 0.40 L (0.52-1.04) mg/dL Calcium 8.0 L (8.4-10.2) mg/dL Total Bilirubin 8.9 H (0.2-1.3) mg/dL AST 131 H (14-36) U/L Albumin 2.9 L (3.5-5.0) g/dL Urine Appearance (Clear) Urine Protein (Negative) Urine Ketones (Negative) Urine Blood (Negative) Urine Bilirubin (Negative) Ur Leukocyte Esterase (Negative) Urine RBC (0-5) /hpf Urine Mucus (None) /hpf U Benzodiazepines Scrn (NotDetected) 10/05/18 10/05/18 Range/Units 08:12 08:12 WBC (3.8-10.6) k/uL RBC (3.80-5.40) m/uL Hgb (11.4-16.0) gm/dL Hct (34.0-46.0) % MCV (80.0-100.0) fL MCH (25.0-35.0) pg Plt Count (150-450) k/uL Lymphocytes # (1.0-4.8) k/uL PT (9.0-12.0) sec INR (<1.2) APTT (22.0-30.0) sec Sodium (137-145) mmol/L BUN (7-17) mg/dL Creatinine (0.52-1.04) mg/dL Calcium (8.4-10.2) mg/dL Total Bilirubin (0.2-1.3) mg/dL AST (14-36) U/L Albumin (3.5-5.0) g/dL Urine Appearance Cloudy H (Clear) Urine Protein 1+ H (Negative) Urine Ketones Trace H (Negative) Urine Blood Large H (Negative) Urine Bilirubin 1+ H (Negative) Ur Leukocyte Esterase Small H (Negative) Urine RBC >182 H (0-5) /hpf Urine Mucus Rare H (None) /hpf U Benzodiazepines Scrn Detected H (NotDetected) Assessment and Plan Plan: -Acute alcoholic gastritis: Patient will be started on Protonix alcohol cessation counseling was provided and it appears like patient was discharged rec ently from the hospital with extensive counseling. -Alcohol withdrawal patient appears to have been undergoing alcohol withdrawal patient will be started on Ativan CIWA protocol thiamine multivitamin supplementation will continue with IV fluids as patient does not appear to have acidosis at this time -Coagulopathy with INR of 1.9 seconded to cirrhosis will give her 1 dose of IV vitamin K. -Alcoholic cirrhosis with competent of acute alcoholic hepatitis, supportive care patient had variceal bleed in the past with rectal bleeding banding. Although patient does not have any significant ascites because of which are good and continue the IV fluids -Hyponatremia appears to be hypovolemic hyponatremia rather than hypervolemic from cirrhosis -Pancytopenia secondary to cirrhosis -Unconjugated hyperbilirubinemia secondary to cirrhosis -Generalized weakness and gait instability secondary to alcoholism patient appears to have chronic encephalopathy but does not appear to have Wernicke's encephalopathy I do not believe patient need high-dose thiamine
[2018-10-05] MEDS ORDERED: ONDANSETRON 4 MG/2 ML VIAL IVP STA (19:43)
[2018-10-05] MEDS ORDERED: PHYTONADIONE ORAL 5 MG/5 ML ORAL.SYRG PO STA (21:29)
[2018-10-05] MEDS: PANTOPRAZOLE 40 MG/10 ML VIAL IVP SCH (21:32)
[2018-10-05 21:44] VITALS: BMI 23.1
[2018-10-06] MEDS: LORazepam 2 MG/ML INJ IV PRN ×6 (00:40→22:30)
[2018-10-06 08:19] LABS: Basophils % (A) 0 %; Eosinophils # (A) 0.1 k/uL (0-0.7); Eosinophils % (A) 3 %; HCT 26.9 % (34.0-46.0); HGB 8.9 gm/dL (11.4-16.0); Lymphocytes # (A) 0.4 k/uL (1.0-4.8); Lymphocytes % (A) 19 %; MCH 35.3 pg (25.0-35.0); MCHC 33.2 g/dL (31.0-37.0); MCV 106.2 fL (80.0-100.0); Macrocytosis Moderate; Mean Platelet Volume 8.9; Monocytes # (A) 0.1 k/uL (0-1.0); Monocytes % (A) 7 %; Neutrophils # (A) 1.3 k/uL (1.3-7.7); Neutrophils % (A) 68 %; RBC 2.53 m/uL (3.80-5.40); RDW 13.3 % (11.5-15.5); WBC 1.9 k/uL (3.8-10.6)
[2018-10-06 08:27] LABS: Platelet Count 26 k/uL (150-450)
[2018-10-06 08:30] LABS: INR 1.9 (<1.2); Prothrombin Time 19.1 sec (9.0-12.0)
[2018-10-06] MEDS: THIAMINE 100 MG TAB PO SCH ×2 (08:31→18:26)
[2018-10-06] MEDS: PANTOPRAZOLE 40 MG/10 ML VIAL IVP SCH ×2 (08:31→20:47)
[2018-10-06 08:41] LABS: ALT 45 U/L (9-52); AST 105 U/L (14-36); Albumin 2.9 g/dL (3.5-5.0); Alkaline Phosphatase 73 U/L (38-126); Anion Gap 10 mmol/L; Blood Urea Nitrogen 8 mg/dL (7-17); Calcium 7.5 mg/dL (8.4-10.2); Carbon Dioxide 20 mmol/L (22-30); Chloride 106 mmol/L (98-107); Glucose 71 mg/dL (74-99); Potassium 3.6 mmol/L (3.5-5.1); Sodium 136 mmol/L (137-145); Total Bilirubin 9.6 mg/dL (0.2-1.3); Total Protein 7.5 g/dL (6.3-8.2)
--- NOTE | 2018-10-06 11:20 | CDI ---
Documentation Clarification Form Date: 10/06/2018 11:10:17 AM From: Rosemarie HandleyHARLEEN, CCDS Admit Date: 10/05/2018 5:08:00 PM Patient Name: Radha Bonds Visit Number: [id number] Discharge Date: ATTENTION: The Clinical Documentation Specialists (CDI) and [facility] Coding Staff appreciate your assistance in clarifying documentation. Please respond to the clarification below the line at the bottom and electronically sign. The CDI & [facility] Coding staff will review the response and follow-up if needed. Please note: Queries are made part of the Legal Health Record. If you have any questions, please contact the author of this message via ITS. Dr. Courtney Lewis: Per the History & Physical: "Generalized weakness and gait instability secondary to alcoholism patient appears to have chronic encephalopathy but does not appear to have Wernicke's encephalopathy " History/Risk Factors: Alcoholism, Alcoholic Gastritis, Alcoholic cirrhosis, previous admissions for Alcohol Withdrawal. Clinical Indicators: Presented to the ED with nausea, bilious vomitus with epigastric abdominal discomfort & tremors, probably in alcohol withdrawal. Labs: WBC 1.8*, RBC 2.65*, Hgb 9.5*, Hct 27.1*, Pl Ct 27*. PT 18.8^, INR 1.9^, APTT 36.0^, Na 134*, Erik 8.0*, T Bili 8.9^, AST 131^, Albumin 2.9*. UA: Dk Brown, cloudy, 1+ prot, trace ketones, Large blood, 1+ bili. small esterase. Toxicology: positive for Benzodiazepines. Treatment: IV fl bolus, IV Ativan x3, IM Vit B1, IV Ms, IV Narcan, IV fl 100, IV Zofran, IV PPI. CIWA scale. In your professional opinion, can you please clarify the specific type of Encephalopathy, if known? Metabolic Encephalopathy Toxic Encephalopathy Hepatic Encephalopathy, if indicated, please clarify: o Indicate whether acute, sub-acute or chronic? o Please include if related to: Alcoholism, Hepatitis, other disease process? Other, please specify Unable to determine (Last Revision: September 2017) Chronic encephalopathy from alcoholism which is toxic encephalopathy MTDD
[2018-10-06 14:17] VITALS: RESP 18
[2018-10-06] MEDS ORDERED: PHYTONADIONE 10 MG in SODIUM CHLORIDE 0.9% 50 ML IVPB STA (14:32)
--- NOTE | 2018-10-06 15:25 | P.PN ---
Subjective 58-year-old admitted the for alcohol withdrawals patient does have advanced alcoholic cirrhosis although doesn't have any significant ascites. Patient is still having withdrawals. Patient is quite weak may require placement in subacute rehabilitation patient is requiring Ativan often. Patient has some gum bleeding because of which I'll order IV vitamin K oral vitamin K did not help her INR. I did order IV vitamin K yesterday which was switched to oral by pharmacy. Patient does have chronic encephalopathy and baseline confusion secondary to that. Does not have any other symptoms of Wernicke's encephalopathy Constitutional: Denied any fatigue denied any fever. Cardio vascular: denied any chest pain, palpitations Gastrointestinal denied any nausea vomiting Pulmonary: Denied any shortness of breath cough Neurologic denied any new focal deficits, although patient is not a reliable historian All inpatient medications were reviewed and appropriate changes in these medications as dictated in the interval history and assessment and plan. Objective - Vital Signs Vital signs: Vital Signs Temp 98.1 F 10/06/18 13:07 Pulse 111 H 10/06/18 13:07 Resp 18 10/06/18 13:07 BP 114/69 10/06/18 13:07 Pulse Ox 96 10/06/18 13:07 Intake & Output 10/05/18 10/06/18 10/06/18 18:59 06:59 18:59 Output Total 250 Balance -250 Output: Urine 250 Other: Voiding Method Toilet # Voids 2 0 - Exam PHYSICAL EXAMINATION: GENERAL: The patient is alert and oriented x3, not in any acute distress. Well developed, well nourished. Definitely bit confused because of alcohol withdrawal HEENT: Pupils are round and equally reacting to light. EOMI. No scleral icterus. No conjunctival pallor. Normocephalic, atraumatic. No pharyngeal erythema. No thyromegaly. She does have bleeding from gums CARDIOVASCULAR: S1 and S2 present. No murmurs, rubs, or gallops. PULMONARY: Chest is clear to auscultation, no wheezing or crackles. ABDOMEN: Soft, nontender, nondistended, normoactive bowel sounds. No palpable organomegaly. Patient does not appear to have any ascites but does have peripheral signs of cirrhosis as mentioned in the HPI MUSCULOSKELETAL: No joint swelling or deformity. EXTREMITIES: No cyanosis, clubbing, or pedal edema. NEUROLOGICAL: Gross neurological examination did not reveal any focal deficits. Gait is unstable because of alcohol withdrawal the knees no ophthalmoplegia or truncal ataxia SKIN: No rashes. - Labs CBC & Chem 7: 10/06/18 07:50 10/06/18 07:50 Labs: Abnormal Lab Results - Last 24 Hours (Table) 10/06/18 10/06/18 10/06/18 Range/Units 07:50 07:50 07:50 WBC 1.9 L (3.8-10.6) k/uL RBC 2.53 L (3.80-5.40) m/uL Hgb 8.9 L (11.4-16.0) gm/dL Hct 26.9 L (34.0-46.0) % MCV 106.2 H (80.0-100.0) fL MCH 35.3 H (25.0-35.0) pg Plt Count 26 L (150-450) k/uL Lymphocytes # 0.4 L (1.0-4.8) k/uL PT 19.1 H (9.0-12.0) sec INR 1.9 H (<1.2) Sodium 136 L (137-145) mmol/L Carbon Dioxide 20 L (22-30) mmol/L Creatinine 0.44 L (0.52-1.04) mg/dL Glucose 71 L (74-99) mg/dL Calcium 7.5 L (8.4-10.2) mg/dL Total Bilirubin 9.6 H (0.2-1.3) mg/dL AST 105 H (14-36) U/L Albumin 2.9 L (3.5-5.0) g/dL Assessment and Plan Plan: -Acute alcoholic gastritis: Patient will be started on Protonix alcohol cessation counseling was provided and it appears like patient was discharged recently from the hospital with extensive counseling. -Alcohol withdrawal patient appears to have been undergoing alcohol withdrawal patient will be started on Ativan CIWA protocol thiamine multivitamin supplementation will continue with IV fluids as patient does not appear to have ascites at this time -Coagulopathy with INR of 1.9 seconded to cirrhosis will give her 1 dose of IV vitamin K. Oral vitamin K did not help her coagulopathy shouldn't does have gum bleeding today -Alcoholic cirrhosis with competent of acute alcoholic hepatitis, supportive care patient had variceal bleed in the past with rectal bleeding banding. Although patient does not have any significant ascites because of which are good and continue the IV fluids -Hyponatremia appears to be hypovolemic hyponatremia rather than hypervolemic from cirrhosis, improved now -Pancytopenia secondary to cirrhosis -Unconjugated hyperbilirubinemia secondary to cirrhosis -Generalized weakness and gait instability secondary to alcoholism patient appears to have chronic encephalopathy but does not appear to have Wernicke's encephalopathy I do not believe patient need high-dose thiamine -Chronic encephalopathy from alcoholism
[2018-10-07] MEDS: LORazepam 2 MG/ML INJ IV PRN ×3 (01:13→07:32)
[2018-10-07 02:40] LABS: Glucose,Whole Blood 88 mg/dL (75-99)
[2018-10-07] MEDS: THIAMINE 100 MG TAB PO SCH ×2 (07:31→18:11)
[2018-10-07] MEDS: PANTOPRAZOLE 40 MG/10 ML VIAL IVP SCH (07:31)
[2018-10-07 08:49] LABS: HCT 25.7 % (34.0-46.0); HGB 8.4 gm/dL (11.4-16.0); MCH 34.6 pg (25.0-35.0); MCHC 32.8 g/dL (31.0-37.0); MCV 105.6 fL (80.0-100.0); Macrocytosis Moderate; Mean Platelet Volume 9.1; RBC 2.44 m/uL (3.80-5.40); RDW 13.5 % (11.5-15.5); WBC 1.9 k/uL (3.8-10.6)
[2018-10-07 08:54] LABS: Platelet Count 36 k/uL (150-450)
[2018-10-07 09:20] LABS: Glucose 110 mg/dL (74-99)
[2018-10-07 09:21] LABS: ALT 46 U/L (9-52); AST 92 U/L (14-36); Albumin 2.8 g/dL (3.5-5.0); Alkaline Phosphatase 72 U/L (38-126); Anion Gap 7 mmol/L; Blood Urea Nitrogen 6 mg/dL (7-17); Calcium 7.4 mg/dL (8.4-10.2); Carbon Dioxide 24 mmol/L (22-30); Chloride 105 mmol/L (98-107); Potassium 3.4 mmol/L (3.5-5.1); Sodium 136 mmol/L (137-145); Total Bilirubin 8.8 mg/dL (0.2-1.3); Total Protein 7.5 g/dL (6.3-8.2)
[2018-10-07] MEDS ORDERED: POTASSIUM CHLORIDE ER 20 MEQ TAB.ER PO STA (11:31)
[2018-10-07 11:51] VITALS: BP 100/65; PULSE 98; TEMP 98
[2018-10-07 13:09] LABS: INR 1.9 (<1.2); Prothrombin Time 18.7 sec (9.0-12.0)
--- NOTE | 2018-10-07 14:28 | P.DS ---
Providers Date of admission: 10/05/18 17:08 Attending physician: Courtney Lewis Primary care physician: Stated None Hospital Course: 58-year-old admitted the for alcohol withdrawals patient does have advanced alcoholic cirrhosis although doesn't have any significant ascites. Patient is still having withdrawals. Patient is quite weak may require placement in subacute rehabilitation patient is requiring Ativan often. Patient has some gum bleeding because of which I'll order IV vitamin K oral vitamin K did not help her INR. I did order IV vitamin K yesterday which was switched to oral by pharmacy. Patient does have chronic encephalopathy and baseline confusion secondary to that. Does not have any other symptoms of Wernicke's encephalopathy. 10/07/2018 Patient is doing better today did not require any Ativan for alcohol withdrawal. Patient's INR did not improve in spite of from IV vitamin K. Patient mental status improved presently appears to be baseline appears to have chronic encephalopathy from alcoholism. I do not expect her mental status to improve better than what it is right now. Her overall prognosis is extremely poor. Physical therapy is requiring subacute rehab because of the social, insurance issues placement in subacute rehabilitation may not happen because of that reason case management and social work is evaluating for home with home care at [facility]. Please refer to the documentation. Patient is medically stable to be discharged if social issues can be addressed. Patient's overall prognosis is extremely poor and high risk for readmission. Patient appears to have advanced cirrhosis. His IV fluids at this can urine patient appears to have some ascites will confirm the amount of ascites with an ultrasound although patient does not have any fluid thrill has minimal shifting dullness. Abdomen is still soft and patient will be discharged on Aldactone and the Lasix. PHYSICAL EXAMINATION: GENERAL: The patient is alert and oriented x3, not in any acute distress. Thin built no more gum bleeding or alcohol withdrawal HEENT: Pupils are round and equally reacting to light. EOMI. does have scleral icterus. No conjunctival pallor. Normocephalic, atraumatic. No pharyngeal erythema. No thyromegaly. CARDIOVASCULAR: S1 and S2 present. No murmurs, rubs, or gallops. PULMONARY: Chest is clear to auscultation, no wheezing or crackles. ABDOMEN: Does have peripheral signs of cirrhosis with some shifting dullness and ascites MUSCULOSKELETAL: No joint swelling or deformity. EXTREMITIES: No cyanosis, clubbing, or pedal edema. NEUROLOGICAL: Gross neurological examination did not reveal any focal deficits. SKIN: No rashes. Assessment and Plan Plan: -Acute alcoholic gastritis: Improved now -Alcohol withdrawal improved not requiring any Ativan -Coagulopathy with INR of 1.9 seconded to cirrhosis -Alcoholic cirrhosis it appeared to be advanced and very poor prognosis, does have ascites no IV fluids were discontinued as mentioned above -Hyponatremia -Pancytopenia secondary to cirrhosis -Unconjugated hyperbilirubinemia secondary to cirrhosis -Generalized weakness and gait instability secondary to alcoholism patient appears to have chronic encephalopathy but does not appear to have Wernicke's encephalopathy -Chronic encephalopathy from alcoholism Patient Condition at Discharge: Stable Plan - Discharge Summary New Discharge Prescriptions: New Spironolactone [Aldactone] 25 mg PO DAILY #30 tablet Furosemide [Lasix] 20 mg PO BID #60 tab Multivitamin [Multivitamins Adult Gummies] 1 each PO DAILY #30 tablet Thiamine [Vitamin B-1] 100 mg PO DAILY #30 tablet Omeprazole [PriLOSEC] 40 mg PO AC-BRKFST #14 capsule. Discharge Medication List Furosemide [Lasix] 20 mg PO BID #60 tab 10/07/18 [Rx] Multivitamin [Multivitamins Adult Gummies] 1 each PO DAILY #30 tablet 10/07/18 [Rx] Omeprazole [PriLOSEC] 40 mg PO AC-BRKFST #14 capsule. 10/07/18 [Rx] Spironolactone [Aldactone] 25 mg PO DAILY #30 tablet 10/07/18 [Rx] Thiamine [Vitamin B-1] 100 mg PO DAILY #30 tablet 10/07/18 [Rx] Follow up Appointment(s)/Referral(s): Velvet Saleem MD [REFERRING] - 1 Week Nonstaff,Physician [REFERRING] - 1-2 days Care Plan Goals (MU): Home medication ativan is downstairs in pharmacy. Slip is in clear chart folder, please get before discharge. Discharge Disposition: TRANSFER TO SNF/ECF
--- NOTE | 2018-10-08 07:33 | US ---
EXAMINATION TYPE: US abdomen limited DATE OF EXAM: 10/07/2018 COMPARISON: CT CLINICAL HISTORY: ascites. Alcoholic cirrhosis per patient; hematemesis. No ascites is seen in any abdominal quadrants. IMPRESSION: 1. Limited abdomen ultrasound without evidence of free fluid.
== END 2018-10-07 19:25 | disposition home or self-care (01) | DRG 391 ==
LOC: EC 06:45 → 4MS4W 17:08 → 3NMEDONC 10-06 16:55
PROVIDERS: ADMIT Internal Medicine; ATTEND Internal Medicine
DX: K29.20 Alcoholic gastritis without bleeding (principal); G92 Toxic encephalopathy; D68.4 Acquired coagulation factor deficiency; E87.1 Hypo-osmolality and hyponatremia; F10.239 Alcohol dependence with withdrawal, unspecified; D61.818 Other pancytopenia; F17.200 Nicotine dependence, unspecified, uncomplicated; K70.11 Alcoholic hepatitis with ascites; K70.31 Alcoholic cirrhosis of liver with ascites
CPT/HCPCS: 36415; 76705; 80053; 80306; 81001; 82140; 82150; 83690; 85025; 85027; 85610; 85730; 96361; 96372; 96374; 99285

== ENCOUNTER 2018-10-12 20:19 | Emergency (ER) | payer OTHER ==
--- NOTE | 2018-10-12 21:22 | ED ---
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 please excuse any grammatical, word or spelling errors. Chief Complaint: 58-year-old female with history of cirrhotic liver presents with Court order for EPS evaluation. History of Present Illness: This 50-year-old female she was brought here by law enforcement. Allegedly patient was brought here for Court order. She is told by law enforcement that she was suicidal. Patient denied suicidal thoughts at this time. Reports that her brother and sister 1 her to be checked on. She was escorted here with a court order. Patient has history of cirrhotic liver. She has multiple bruises. Family according to patient believes that she has been hurting herself. Patient denies any psychiatric history. No auditory or visual hallucinations. The ROS documented in this emergency department record has been reviewed and confirmed by me. Those systems with pertinent positive or negative responses have been documented in the HPI. All other systems are other negative and/or noncontributory. PHYSICAL EXAM: General Impression: Alert and oriented x3, not in acute distress HEENT: Normocephalic atraumatic, extra-ocular movements intact, pupils equal and reactive to light bilaterally, mucous membranes moist. Cardiovascular: Heart regular rate and rhythm, S1&S2 audible, no murmurs, rubs or gallops Chest: Lungs clear to auscultation bilaterally, no rhonchi, no wheeze, no rales Abdomen: Bowel sounds present, abdomen soft, non-tender, non-distended, no o rganomegaly Musculoskeletal: Pulses present and equal in all extremities, no peripheral edema Motor: no focal deficits noted Neurological: CN II-XII grossly intact, no focal motor or sensory deficits noted Skin: Scleral icterus, mild jaundice and diffuse ecchymoses to the arms Psych: Normal affect and mood ED course: 58-year-old female brought in by court order for psychiatric evaluation. Vital signs upon arrival shows heart rate of 111, worse vital signs within acceptable limits. Both alcohol test is negative. Laboratory evaluation was obtained given that patient has multiple comorbidities. CBC appears at baseline. Patient is quite lymphatic likely secondary to chronic liver disease. Patient was mildly hypokalemic with potassium 3.2. Patient given by mouth potassium. Rest of labs are at baseline for patient. Patient medically cleared for EPS evaluation. Patient is sent out to Dr. Aly for follow-up of EPS recommendations. EKG interpretation: Ventricular rate 96, normal sinus rhythm, GA interval 184, care is 80, QTc 467. No GA prolongation, no QTC prolongation, no ST or T-wave changes noted. Overall, this EKG is unremarkable (Obinna Warner) - Related Data Home Medications Medication Instructions Recorded Confirmed Acetaminophen Tab [Tylenol Tab] 650 mg PO Q6H PRN 10/12/18 10/12/18 Multivitamin [Multivitamins Adult 1 tab PO DAILY 10/12/18 10/12/18 Gummies] Allergies Allergy/AdvReac Type Severity Reaction Status Date / Time Penicillins Allergy Unknown Verified 10/12/18 20:54 Childhood Review of Systems ROS Other: All systems not noted in ROS Statement are negative. <Obinna Warner - Last Filed: 10/13/18 00:43> ROS Other: All systems not noted in ROS Statement are negative. <Lucien Fajardo - Last Filed: 10/13/18 03:16> ROS Statement: Those systems with pertinent positive or pertinent negative responses have been documented in the HPI. Past Medical History Additional Past Medical History / Comment(s): cirrhosis of the liver History of Any Multi-Drug Resistant Organisms: None Reported Past Surgical History: Tonsillectomy Past Anesthesia/Blood Transfusion Reactions: No Reported Reaction Past Psychological History: No Psychological Hx Reported Smoking Status: Current some day smoker Past Alcohol Use History: Abuse, Daily Past Drug Use History: None Reported - Past Family History Father Family Medical History: No Reported History Mother Family Medical History: No Reported History <Obinna Warner - Last Filed: 10/13/18 00:43> General Exam Limitations: no limitations <Obinna Warner - Last Filed: 10/13/18 00:43> Course Vital Signs 10/12/18 20:24 Temperature 98.7 F Pulse Rate 111 H Respiratory 18 Rate Blood Pressure 124/74 O2 Sat by Pulse 98 Oximetry Medical Decision Making - Lab Data Result diagrams: 10/12/18 21:30 10/12/18 21:30 <Obinna Warner - Last Filed: 10/13/18 00:43> - Lab Data Result diagrams: 10/12/18 21:30 10/12/18 21:30 <Lucien Fajardo - Last Filed: 10/13/18 03:16> - Medical Decision Making Patient has been seen by a [facility] and is clear to as outpatient. (Lucien Fajardo) - Lab Data Lab Results 10/12/18 10/12/18 10/12/18 Range/Units 21:30 21:30 21:30 WBC 3.4 L (3.8-10.6) k/uL RBC 2.81 L (3.80-5.40) m/uL Hgb 9.6 L (11.4-16.0) gm/dL Hct 29.1 L (34.0-46.0) % MCV 103.5 H (80.0-100.0) fL MCH 34.2 (25.0-35.0) pg MCHC 33.0 (31.0-37.0) g/dL RDW 14.7 (11.5-15.5) % Plt Count 79 L D (150-450) k/uL Neutrophils % 68 % Lymphocytes % 17 % Monocytes % 10 % Eosinophils % 1 % Basophils % 0 % Neutrophils # 2.3 (1.3-7.7) k/uL Lymphocytes # 0.6 L (1.0-4.8) k/uL Monocytes # 0.3 (0-1.0) k/uL Eosinophils # 0.0 (0-0.7) k/uL Basophils # 0.0 (0-0.2) k/uL Macrocytosis Slight PT (9.0-12.0) sec INR (<1.2) Sodium 134 L (137-145) mmol/L Potassium 3.2 L (3.5-5.1) mmol/L Chloride 96 L (98-107) mmol/L Carbon Dioxide 28 (22-30) mmol/L Anion Gap 10 mmol/L BUN 5 L (7-17) mg/dL Creatinine 0.62 (0.52-1.04) mg/dL Est GFR (CKD-EPI)AfAm >90 (>60 ml/min/1.73 sqM) Est GFR (CKD-EPI)NonAf >90 (>60 ml/min/1.73 sqM) Glucose 118 H (74-99) mg/dL Calcium 7.9 L (8.4-10.2) mg/dL Total Bilirubin 7.8 H (0.2-1.3) mg/dL AST 89 H (14-36) U/L ALT 39 (9-52) U/L Alkaline Phosphatase 146 H (38-126) U/L Total Protein 8.3 H (6.3-8.2) g/dL Albumin 3.3 L (3.5-5.0) g/dL Blood Type O Positive Blood Type Recheck No Antibody Screen NEGATIVE Spec Expiration Date 10/15/2018 - 232910/12/18 Range/Units 21:30 WBC (3.8-10.6) k/uL RBC (3.80-5.40) m/uL Hgb (11.4-16.0) gm/dL Hct (34.0-46.0) % MCV (80.0-100.0) fL MCH (25.0-35.0) pg MCHC (31.0-37.0) g/dL RDW (11.5-15.5) % Plt Count (150-450) k/uL Neutrophils % % Lymphocytes % % Monocytes % % Eosinophils % % Basophils % % Neutrophils # (1.3-7.7) k/uL Lymphocytes # (1.0-4.8) k/uL Monocytes # (0-1.0) k/uL Eosinophils # (0-0.7) k/uL Basophils # (0-0.2) k/uL Macrocytosis PT 16.8 H (9.0-12.0) sec INR 1.7 H (<1.2) Sodium (137-145) mmol/L Potassium (3.5-5.1) mmol/L Chloride (98-107) mmol/L Carbon Dioxide (22-30) mmol/L Anion Gap mmol/L BUN (7-17) mg/dL Creatinine (0.52-1.04) mg/dL Est GFR (CKD-EPI)AfAm (>60 ml/min/1.73 sqM) Est GFR (CKD-EPI)NonAf (>60 ml/min/1.73 sqM) Glucose (74-99) mg/dL Calcium (8.4-10.2) mg/dL Total Bilirubin (0.2-1.3) mg/dL AST (14-36) U/L ALT (9-52) U/L Alkaline Phosphatase (38-126) U/L Total Protein (6.3-8.2) g/dL Albumin (3.5-5.0) g/dL Blood Type Blood Type Recheck Antibody Screen Spec Expiration Date Disposition <Obinna Warner - Last Filed: 10/13/18 00:43> Is patient prescribed a controlled substance at d/c from ED?: No <Lucien Fajardo - Last Filed: 10/13/18 03:16> Clinical Impression: Mood disorder Disposition: HOME SELF-CARE Condition: Good Instructions (If sedation given, give patient instructions): Mood Disorders (ED) Referrals: None,Stated [Primary Care Provider] - 1-2 days
[2018-10-12 22:14] LABS: INR 1.7 (<1.2); Prothrombin Time 16.8 sec (9.0-12.0)
[2018-10-12 22:16] LABS: Basophils % (A) 0 %; Eosinophils % (A) 1 %; HCT 29.1 % (34.0-46.0); HGB 9.6 gm/dL (11.4-16.0); Lymphocytes # (A) 0.6 k/uL (1.0-4.8); Lymphocytes % (A) 17 %; MCH 34.2 pg (25.0-35.0); MCV 103.5 fL (80.0-100.0); Macrocytosis Slight; Mean Platelet Volume 8.7; Monocytes # (A) 0.3 k/uL (0-1.0); Monocytes % (A) 10 %; Neutrophils # (A) 2.3 k/uL (1.3-7.7); Neutrophils % (A) 68 %; RBC 2.81 m/uL (3.80-5.40); RDW 14.7 % (11.5-15.5); WBC 3.4 k/uL (3.8-10.6)
[2018-10-12 22:17] LABS: ALT 39 U/L (9-52); AST 89 U/L (14-36); Albumin 3.3 g/dL (3.5-5.0); Alkaline Phosphatase 146 U/L (38-126); Anion Gap 10 mmol/L; Blood Urea Nitrogen 5 mg/dL (7-17); Calcium 7.9 mg/dL (8.4-10.2); Carbon Dioxide 28 mmol/L (22-30); Chloride 96 mmol/L (98-107); Glucose 118 mg/dL (74-99); Potassium 3.2 mmol/L (3.5-5.1); Sodium 134 mmol/L (137-145); Total Bilirubin 7.8 mg/dL (0.2-1.3); Total Protein 8.3 g/dL (6.3-8.2)
[2018-10-12 22:42] LABS: Platelet Count 79 k/uL (150-450)
[2018-10-12] MEDS ORDERED: POTASSIUM CHLORIDE ER 20 MEQ TAB.ER PO STA (23:07)
[2018-10-13 04:57] VITALS: BP 128/78; PULSE 71; RESP 19; TEMP 98.9
== END 2018-10-13 03:27 | disposition home or self-care (01) ==
LOC: EC 20:19
DX: F39 Unspecified mood [affective] disorder (principal); E87.6 Hypokalemia; S40.022A Contusion of left upper arm, initial encounter; S40.021A Contusion of right upper arm, initial encounter; F17.200 Nicotine dependence, unspecified, uncomplicated; Z88.0 Allergy status to penicillin; X58.XXXA Exposure to other specified factors, initial encounter
CPT/HCPCS: 36415; 80053; 82075; 85025; 85610; 86850; 86900; 86901; 93005; 99284

== ENCOUNTER 2018-10-24 05:29 | Emergency (ER) | payer OTHER ==
[2018-10-24 05:39] VITALS: TEMP 98.1
--- NOTE | 2018-10-24 05:44 | ED ---
GI Bleed HPI - General Stated complaint: Coughing up blood Time Seen by Provider: 10/24/18 05:31 Source: EMS Limitations: no limitations - History of Present Illness Initial comments: Patient is a 58-year-old alcoholic female with a history of alcoholic cirrhosis and a distant history of GI bleeding secondary to her sees. Patient presents the emergency department today via EMS for evaluation of coughing up mucus with blood. Patient states that she's been in her usual state of health she's been taking her medications as prescribed. She does state that after her previous admission in September she has been on a drinking binge drinking 6-12 beers daily however 2 days ago she decided once again she needs to stop drinking and hasn't had any alcohol since then. Patient states she is feeling anxious and having trouble sleeping. She states that this morning she coughed to clear her throat and noted that the sputum she coughed up was streaked with blood. She reports that this persisted for about 15-30 minutes. Patient was concerned this may be related to her previous variceal bleeding so she called an ambulance for transport to the hospital. She has had no nausea, no vomiting, no dark or tarry stools. - Related Data Home Medications Medication Instructions Recorded Confirmed Acetaminophen Tab [Tylenol Tab] 650 mg PO Q6H PRN 10/12/18 10/12/18 Multivitamin [Multivitamins Adult 1 tab PO DAILY 10/12/18 10/12/18 Gummies] Allergies Allergy/AdvReac Type Severity Reaction Status Date / Time Penicillins Allergy Unknown Verified 10/24/18 05:39 Childhood Review of Systems ROS Statement: Those systems with pertinent positive or pertinent negative responses have been documented in the HPI. ROS Other: All systems not noted in ROS Statement are negative. Past Medical History Additional Past Medical History / Comment(s): cirrhosis of the liver History of Any Multi-Drug Resistant Organisms: None Reported Past Surgical History: Tonsillectomy Past Anesthesia/Blood Transfusion Reactions: No Reported Reaction Past Psychological History: No Psychological Hx Reported Smoking Status: Current some day smoker Past Alcohol Use History: Abuse, Daily Past Drug Use History: None Reported - Past Family History Father Family Medical History: No Reported History Mother Family Medical History: No Reported History General Exam - General Exam Comments Initial Comments: Physical Exam GENERAL: Chronically ill-appearing, jaundice HENT: Normocephalic, Atraumatic. Normal TMs Dried blood in the right naris EYES: Scleral icterus No conjunctival pallor PULMONARY: Unlabored respirations. No audible rales rhonchi or wheezing was noted. CARDIOVASCULAR: There is a regular rate and rhythm without any murmurs gallops or rubs. ABDOMEN: Soft, distended, ascites SKIN: Jaundice : Deferred NEUROLOGIC: Patient is alert and oriented x3. Moving all extremities spontaneously MUSCULOSKELETAL: Normal extremities with adequate strength and full range of motion. No lower extremity swelling or edema. No calf tenderness. PSYCHIATRIC: Normal psychiatric evaluation. Limitations: no limitations Course Vital Signs 10/24/18 10/24/18 05:30 06:45 Temperature 98.1 F Pulse Rate 87 97 Respiratory 20 18 Rate Blood Pressure 135/101 139/80 O2 Sat by Pulse 97 97 Oximetry Medical Decision Making - Medical Decision Making Patient was seen and evaluated, history is obtained from the patient and review of medical record Patient reports she has coughed up some mucus with blood in it this morning, she denies any additional complaints denies any abdominal pain nausea or vomiting denies any change in her I'll or bladder habits she's not had any melena or hematochezia Exam the patient does have dried blood in the right naris and admits that she has occasional bloody noses and did have one yesterday. I suspect the patient is simply been coughing up blood that had drained down her posterior oropharynx. However given her very extensive history we will order labs and ensure that her hemoglobin is at baseline. Results were discussed with the patient. Patient continues to have blood-tinged oral secretions, on evaluation she does have mild blood in the posterior oropharynx, again I believe this is coming from a nosebleed. During her entire stay here in the emergency department I suspect the patient had may be 2-3 mL of blood loss.I advised the patient to drink cold water, stop rubbing her nose. At this time I do not feel there is any indication for admission to the hospital. Patient is hemodynamically stable hemoglobin is improving her labs are better than her previous. I discussed this with the patient who is agreeable to plan for discharge home. Return parameters were discussed all questions pertaining care were answered patient was tolerating by mouth intake at the time of discharge. - Lab Data Result diagrams: 10/24/18 06:18 10/24/18 06:18 Lab Results 10/24/18 10/24/18 10/24/18 Range/Units 06:18 06:18 06:18 WBC 4.7 (3.8-10.6) k/uL RBC 3.16 L (3.80-5.40) m/uL Hgb 10.5 L (11.4-16.0) gm/dL Hct 33.6 L (34.0-46.0) % MCV 106.6 H (80.0-100.0) fL MCH 33.3 (25.0-35.0) pg MCHC 31.2 (31.0-37.0) g/dL RDW 14.2 (11.5-15.5) % Plt Count 82 L (150-450) k/uL Neutrophils % 82 % Lymphocytes % 10 % Monocytes % 5 % Eosinophils % 1 % Basophils % 0 % Neutrophils # 3.8 (1.3-7.7) k/uL Lymphocytes # 0.4 L (1.0-4.8) k/uL Monocytes # 0.3 (0-1.0) k/uL Eosinophils # 0.1 (0-0.7) k/uL Basophils # 0.0 (0-0.2) k/uL Manual Slide Review Performed Macrocytosis Moderate PT 17.0 H (9.0-12.0) sec INR 1.7 H (<1.2) APTT 33.2 H (22.0-30.0) sec Sodium 135 L (137-145) mmol/L Potassium 3.8 (3.5-5.1) mmol/L Chloride 104 (98-107) mmol/L Carbon Dioxide 23 (22-30) mmol/L Anion Gap 8 mmol/L BUN 6 L (7-17) mg/dL Creatinine 0.43 L (0.52-1.04) mg/dL Est GFR (CKD-EPI)AfAm >90 (>60 ml/min/1.73 sqM) Est GFR (CKD-EPI)NonAf >90 (>60 ml/min/1.73 sqM) Glucose 96 (74-99) mg/dL Calcium 7.9 L (8.4-10.2) mg/dL Total Bilirubin 8.2 H (0.2-1.3) mg/dL AST 86 H (14-36) U/L ALT 27 (9-52) U/L Alkaline Phosphatase 160 H (38-126) U/L Total Protein 8.1 (6.3-8.2) g/dL Albumin 3.0 L (3.5-5.0) g/dL Disposition Clinical Impression: Chronic alcoholism, Cirrhosis, Coagulopathy, Epistaxis Disposition: HOME SELF-CARE Condition: Stable Instructions (If sedation given, give patient instructions): Nosebleed (ED) Is patient prescribed a controlled substance at d/c from ED?: No Referrals: None,Stated [Primary Care Provider] - 1-2 days
[2018-10-24 06:44] LABS: Basophils % (A) 0 %; Eosinophils # (A) 0.1 k/uL (0-0.7); Eosinophils % (A) 1 %; HCT 33.6 % (34.0-46.0); HGB 10.5 gm/dL (11.4-16.0); Lymphocytes # (A) 0.4 k/uL (1.0-4.8); Lymphocytes % (A) 10 %; MCH 33.3 pg (25.0-35.0); MCHC 31.2 g/dL (31.0-37.0); MCV 106.6 fL (80.0-100.0); Macrocytosis Moderate; Monocytes # (A) 0.3 k/uL (0-1.0); Monocytes % (A) 5 %; Neutrophils # (A) 3.8 k/uL (1.3-7.7); Neutrophils % (A) 82 %; RBC 3.16 m/uL (3.80-5.40); RDW 14.2 % (11.5-15.5); WBC 4.7 k/uL (3.8-10.6)
[2018-10-24 06:46] VITALS: BP 139/80; PULSE 97; RESP 18
[2018-10-24 06:47] LABS: INR 1.7 (<1.2)
[2018-10-24 06:48] LABS: ALT 27 U/L (9-52); AST 86 U/L (14-36); Alkaline Phosphatase 160 U/L (38-126); Anion Gap 8 mmol/L; Blood Urea Nitrogen 6 mg/dL (7-17); Calcium 7.9 mg/dL (8.4-10.2); Carbon Dioxide 23 mmol/L (22-30); Chloride 104 mmol/L (98-107); Glucose 96 mg/dL (74-99); Partial Thromboplastin Time 33.2 sec (22.0-30.0); Potassium 3.8 mmol/L (3.5-5.1); Sodium 135 mmol/L (137-145); Total Bilirubin 8.2 mg/dL (0.2-1.3); Total Protein 8.1 g/dL (6.3-8.2)
[2018-10-24 07:04] LABS: Platelet Count 82 k/uL (150-450)
--- NOTE | 2018-10-24 07:08 | XR ---
EXAM: XR Chest, 2 Views CLINICAL HISTORY: ITS.REASON XR Reason: reported hemoptysis TECHNIQUE: Frontal and lateral views of the chest. COMPARISON: 10/03/2018. FINDINGS: Lungs: Unremarkable. No consolidation. Pleural space: Unremarkable. No pneumothorax. Heart: Unremarkable. No cardiomegaly. Mediastinum: Unremarkable. Bones/joints: Mild scoliosis. IMPRESSION: No acute findings.
== END 2018-10-24 07:25 | disposition home or self-care (01) ==
LOC: EC 05:29
DX: K70.30 Alcoholic cirrhosis of liver without ascites (principal); F10.20 Alcohol dependence, uncomplicated; D68.9 Coagulation defect, unspecified; R04.0 Epistaxis; R04.2 Hemoptysis; F17.200 Nicotine dependence, unspecified, uncomplicated; Z88.0 Allergy status to penicillin
CPT/HCPCS: 36415; 71046; 80053; 85025; 85610; 85730; 99284